=== PATIENT | male | born 1955 | race Caucasian/White ===

== ENCOUNTER 2017-11-03 14:29 | Outpatient (CLI) | payer MEDICARE | END 2017-11-03 14:30 | disposition home or self-care (01) | LOC: BICRAD 14:29 | PROVIDERS: ATTEND Specialist | DX: R09.1 Pleurisy (principal); R05 Cough; I65.22 Occlusion and stenosis of left carotid artery; K00.0 Anodontia; K02.9 Dental caries, unspecified | CPT/HCPCS: 70220; 71046 ==

== ENCOUNTER 2017-11-14 07:36 | Outpatient (CLI) | payer MEDICARE ==
[2017-11-14] MEDS ORDERED: Iopamidol 370 76% 100 ML VIAL ONE (11:25)
== END 2017-11-14 07:37 | disposition home or self-care (01) ==
LOC: BICCT 07:36
PROVIDERS: ATTEND Internal Medicine Gastroenterology
DX: R63.4 Abnormal weight loss (principal); J90 Pleural effusion, not elsewhere classified; J98.11 Atelectasis; R91.8 Other nonspecific abnormal finding of lung field; R59.0 Localized enlarged lymph nodes; M25.412 Effusion, left shoulder; M25.411 Effusion, right shoulder; D64.9 Anemia, unspecified; R93.8 Abnormal findings on diagnostic imaging of other specified body structures
CPT/HCPCS: 71260; 74177

== ENCOUNTER 2018-01-19 10:00 | Outpatient (CLI) | payer MEDICARE ==
--- NOTE | 2018-01-19 12:06 | RAD ---
PA AND LATERAL CHEST RADIOGRAPH: Date: 01-19-18 History: Dyspnea. Comparison: 06-06-10 FINDINGS: Cardiac silhouette and pulmonary vasculature are within normal limits. There is elevation of the left hemidiaphragm. There is a linear density seen within the superior segment of the left lower lobe lik alex related to either subsegmental atelectasis or scarring. There is increased density at the medial right lung base which is probably related to superimposition of structures including vasculature. Keyla gs are otherwise clear. Mild degenerative changes are seen in the spine. IMPRESSION: 1. Interval development of mild elevation of the left hemidiaphragm with subsegmental atelectasis jesus yesenia scarring in the left lower lobe. 2. No acute cardiopulmonary process. POS: [facility]
== END 2018-01-19 10:01 | disposition home or self-care (01) ==
LOC: RAD 10:00
PROVIDERS: ATTEND Internal Medicine Critical Care Medicine
DX: R06.00 Dyspnea, unspecified (principal); J98.6 Disorders of diaphragm
CPT/HCPCS: 71046

== ENCOUNTER 2018-04-07 14:59 | Observation (INO) | payer MEDICARE ==
[~2018-04-07 14:59] MED LIST: ISOVUE-370 76%-LOCM 1 ML ONE
[2018-04-07] MEDS ORDERED: Ondansetron HCl/PF 4 MG/2 ML Vial ONE (15:12)
[2018-04-07 15:34] LABS: #Eosinphils 0.2 thou/uL (0.0-0.7); #Lymphocytes 0.7 thou/uL (1.20-3.40); #Monocytes 0.4 thou/uL (0.11-0.59); #Neutrophils 4.7 thou/uL (1.40-6.50); %Basophils 0.4 % (0.0-1.0); %Eosinophils 3.1 % (0.0-10.0); %Lymphocytes 12.3 % (21.0-51.0); %Monocytes 6.1 % (0.0-10.0); %Neutrophils 78.2 % (42.0-75.0); Hemoglobin 10.5 g/dL (14.0-18.0); Mean Corpuscular HGB CONC 30.8 g/dL (32.0-36.0); Mean Corpuscular Hemoglobin 24.9 pg (27.0-31.0); Mean Corpuscular Volume 80.8 fL (78.0-98.0); Mean Platelet Volume 9.3 fL (7.4-10.4); Platelet Count 138 thou/uL (130-400); RBC Distribution Width 15.5 % (11.5-14.5); Red Blood Cell (RBC) Count 4.24 mill/uL (4.70-6.10)
[2018-04-07 15:56] LABS: ALT (SGPT) Less than 7 U/L (8-55); AST (SGOT) 7 U/L (5-34); Albumin 3.4 g/dL (3.4-4.8); Alkaline Phosphatase 69 U/L (40-150); Anion Gap 16 mmol/L (10-20); BUN (Urea Nitrogen) 7 mg/dL (8.4-25.7); Bilirubin, Total 0.7 mg/dL (0.2-1.2); CKMB 0.7 ng/mL (0-6.6); Calc. Creatinine Clearance 0 mL/min (70-130); Calcium 8.9 mg/dL (7.8-10.44); Carbon Dioxide 22 mmol/L (23-31); Chloride 99 mmol/L (98-107); Estimated GFR-MDRD Greater than 90; Globulin 3.5 g/dL (2.4-3.5); Glucose 187 mg/dL (80-115); Protein, Total 6.9 g/dL (5.8-8.1); Sodium 134 mmol/L (136-145); Troponin I Less than 0.010 ng/mL (< 0.028)
[2018-04-07 16:00] LABS: Potassium 2.8 mmol/L (3.5-5.1)
--- NOTE | 2018-04-07 16:01 | RAD ---
PORTABLE AP CHEST X-RAY 04/07/18 HISTORY: Syncope. COMPARISON: 01/19/18 FINDINGS: The cardiac silhouette and pulmonary vasculature are within normal limits for portable technique of t he study. There is stable mild elevation of the left hemidiaphragm particularly involving the lateral left hemidiaphragm. There are erosive changes involving the humeral heads bilaterally also present o n the prior exam. There is good distention of loops of bowel beneath the hemidiaphragms. IMPRESSION: 1. No acute cardiopulmonary process. 2. Stable elevation of the left hemidiaphragm with scarring in the region of the left mid lung z one and left lung base. 3. Stable erosive change involving the humeral heads bilaterally. POS: [facility]
[2018-04-07] MEDS ORDERED: Potassium Chloride 20 MEQ TAB ONE (16:03)
[2018-04-07] MEDS ORDERED: ALPRAZolam 1 MG TAB PO SCH ×2 (18:15→18:30)
[2018-04-07 19:28] LABS: Troponin I Less than 0.010 ng/mL (< 0.028)
--- NOTE | 2018-04-07 20:33 | CT ---
CTA CHEST WITH CONTRAST: 04/07/18 Multiple axial tomograms obtained through the chest following pulmonary angio protocol. Multiplanar r econstruction with 3D postprocessing performed. INDICATIONS: Seizure, shortness of breath, possible syncope. FINDINGS: The pulmonary arteries are adequately opacified. No evidence of pulmonary embolus. Linear atelectasis in the left lung base. Some interstitial prominence in the posterior left lung bas e of uncertain significance. No confluent infiltrate. No significant effusion. Review of the mediastinum reveals soft tissue density in the subcarinal region measuring 2.5 cm, poss ibly adenopathy. There are other nonspecific paratracheal nodes. There are enlarged and increased number of axillary nodes bilaterally. Several nodes are seen in the retropectoral region bilaterally. There is evidence of a small pericardial effusion. Imaged to upper abdomen show mild splenomegaly. IMPRESSION: 1. No evidence of pulmonary embolus. 2. No acute lung process. 3. Small pericardial effusion. 4. Evidence of mediastinal adenopathy in the subcarinal region. 5. Bilateral axillary adenopathy. POS: [facility]
[2018-04-07 22:03] LABS: Troponin I Less than 0.010 ng/mL (< 0.028)
[2018-04-07] MEDS ORDERED: Rosuvastatin 10 MG TAB PO SCH (22:15)
[2018-04-07] MEDS ORDERED: Potassium Chloride 20 MEQ TAB PO SCH (22:15)
[2018-04-07] MEDS: Acetaminophen/Codeine 30-300mg Tablet PO PRN (22:26)
[2018-04-07 23:20] VITALS: BMI 23.3
[2018-04-08] MEDS: ALPRAZolam 1 MG TAB PO PRN ×2 (00:10→08:51)
[2018-04-08] MEDS ORDERED: Ondansetron ODT 4 MG TAB SL PRN (02:27)
[2018-04-08] MEDS ORDERED: Acetaminophen 325 MG TAB PO PRN (02:27)
[2018-04-08] MEDS ORDERED: Ondansetron HCl/PF 4 MG/2 ML Vial IVP PRN (02:27)
[2018-04-08] MEDS ORDERED: Sodium Chloride 0.9% 1,000 ML IV SCH (02:27)
[2018-04-08 04:53] LABS: Anion Gap 11 mmol/L (10-20); BUN (Urea Nitrogen) 6 mg/dL (8.4-25.7); Calc. Creatinine Clearance 141 mL/min (70-130); Calcium 8.9 mg/dL (7.8-10.44); Carbon Dioxide 28 mmol/L (23-31); Chloride 100 mmol/L (98-107); Estimated GFR-MDRD Greater than 90; Glucose 92 mg/dL (80-115); Potassium 4.2 mmol/L (3.5-5.1); Sodium 135 mmol/L (136-145)
--- NOTE | 2018-04-08 07:42 | SS ---
CHIEF COMPLAINT: Vasovagal episode with hypokalemia. HISTORY OF PRESENT ILLNESS: The patient is a 62-year-old male with severe rheumatoid arthritis and has been dealing with chronic pain and deformity due to the rheumatoid arthritis. He recently has had surgery on his left elbow and had been taking some hydrocodone along with the fentanyl that was given to him to deal with his chronic pain. The patient has had a problem with this medication combination in the past, over utilizing medicines and being hospitalized for consequences thereof. On this particular episode the patient was being transported to his doctor's office, Home Health was present and he was ambulating just fine until he looked up while walking out to the car to get in the car, at which time when he looked up, raise his head up, he lost his equilibrium and went down. EMS was called. There was never any seizure activity noted. He was never postictal. He responded right away. He was brought to the emergency room where he was found to have a potassium level of 2.8. He was put in the hospital to be watched overnight. There has been no nausea, vomiting, diarrhea, no fever overnight. He has done well. No cardiac arrhythmias, chest pain, shortness of breath and he has no specific complaints on the morning of discharge. PAST MEDICAL HISTORY: Significant for the aforementioned rheumatoid arthritis affecting all the major joints of his body, generalized anxiety and history of medication abuse and overuse. He also has a history of dyslipidemia. PAST SURGICAL HISTORY: Includes the aforementioned recent surgery on his left elbow. He has also had surgery on his right hand, right hip, bilateral knees, left foot, left ankle, left elbow replaced most recently. SOCIAL HISTORY: He is , lives alone. Drinks socially, denies illicit drug use or smoking. ALLERGIES: CELECOXIB, DEMEROL and SULFA. CURRENT MEDICATIONS: Crestor 10 mg at bedtime, fentanyl 25 mcg q.72h., aspirin 81 mg a day, Tylenol #4 q.6 hours p.r.n. this is closely monitored due to history of medication abuse, Xanax 2 mg closely monitored, also, due to history of overdose and misuse, Protonix 40 mg once a day. REVIEW OF SYSTEMS: CONSTITUTIONAL: At the time of admission constitutionally denies chills, fever. He admits to generalized weakness, this is his baseline with chronic diffuse pain. HEENT: No sores in ears, nose or throat. No drainage or pain in those locations. CHEST: Denies dyspnea, cough, wheezing. CARDIOVASCULAR: Denies chest pain, palpitations. ABDOMEN: Denies nausea, vomiting, diarrhea. : Denies dysuria or blood in urine or stool. MUSCULOSKELETAL: He has diffuse arthralgias with deformities and stiffness. SKIN: No acute rashes or lesions. NEUROLOGIC: No specific areas of anesthesia, paresthesias hypesthesia, but he does have general weakness. PSYCHIATRIC: Maintains constant anxiety and drug seeking behavior. PHYSICAL EXAMINATION: VITAL SIGNS: Blood pressure 134/66, pulse 75, respirations 18, temperature 98.4. Pain scale is always a 10/10, O2 sat 95% on room air. HEENT: Normocephalic and atraumatic. Pupils equal, round, and reactive to light. Extraocular muscles intact. TMs, nares, pharynx clear. NECK: Supple, trachea midline, no mass, no bruits, no adenopathy. CHEST: Clear to auscultation. HEART: Regular rate and rhythm without murmur. ABDOMEN: Scaphoid without hepatosplenomegaly. Nontender to exam. : Deferred. EXTREMITIES: With deformities in all the major joints, but diminished range of motion as well. SKIN: No new rashes or lesions. NEUROLOGIC: Cranial nerves are intact. Sensory exam is intact. Mental status is at baseline and nonfocal. Gait and cerebellar function untested at this time. LABORATORY DATA: Lab work on admission; WBC 6, hemoglobin 10.5, hematocrit 34.2 with platelets at 134. Sodium initially 134 has been corrected to 135, potassium 2.8, corrected to 4.2, carbon dioxide 22, corrected to 28, chloride 99 , BUN 7, creatinine 0.67, glucose 187, corrected to 92, calcium 8.9. Liver functions unremarkable. Cardiac enzymes unremarkable x3. Chest x-ray; no acute process. Bilateral erosive changes in the humeral heads noted. Chest CT, no evidence of PE, small pericardial effusion, evidence of mediastinal adenopathy in the subcarinal region, bilateral axillary adenopathy as well. HOSPITAL COURSE: As mentioned the patient initially evaluated in the ER and found to be hypokalemic and weak. He was placed in the hospital overnight. Cardiac enzymes were performed and negative. Cardiac rhythm was monitored and was found to be within normal limits. He had an unremarkable night and wakes easily on the day of discharge without complaints, alert, cooperative. He admits to taking hydrocodone on top of his fentanyl patch which he was not supposed to do, probably also on top of a Tylenol #4, which he had had, and then his Xanax with that, so these drugs have interacted to cause his symptomatology and he has been warned not to use this combination again. He apologizes and he knew better. ASSESSMENT: 1. Vasovagal episode secondary to polysubstance abuse. 2. Diffuse rheumatoid arthritis with chronic pain. 3. Hypokalemia, corrected. 4. Mediastinal axillary adenopathy will be worked up as an outpatient. PLAN: The plan will be to discharge home. Resume his medications excluding the hydrocodone on top of his other medicines and will follow up with Dr. Myles in the office in 1-2 weeks. The time required to review the chart, examine the patient, student services counselor the patient , answer all his questions and prepare the chart for discharge, all his medication was reconciled, then came to 35 minutes. FLORY
[2018-04-08] MEDS ORDERED: Potassium Chloride 20 MEQ TAB PO SCH (08:00)
[2018-04-08] MEDS: Acetaminophen/Codeine 30-300mg Tablet PO PRN (08:51)
[2018-04-08 12:23] VITALS: BP 97/56; TEMP 97.6
[2018-04-08] MEDS ORDERED: Rosuvastatin 10 MG TAB PO SCH (21:00)
== END 2018-04-08 13:55 | disposition home or self-care (01) ==
LOC: ERS 14:59 → 2SW 21:15
PROVIDERS: ADMIT Specialist; ATTEND Specialist
DX: T40.2X1A Poisoning by other opioids, accidental (unintentional), initial encounter (principal); T40.4X1A Poisoning by other synthetic narcotics, accidental (unintentional), initial encounter; T39.1X1A Poisoning by 4-Aminophenol derivatives, accidental (unintentional), initial encounter; T42.4X1A Poisoning by benzodiazepines, accidental (unintentional), initial encounter; R55 Syncope and collapse; M06.89 Other specified rheumatoid arthritis, multiple sites; E87.6 Hypokalemia; R59.0 Localized enlarged lymph nodes; E78.5 Hyperlipidemia, unspecified; F41.1 Generalized anxiety disorder; Z79.82 Long term (current) use of aspirin; Z79.899 Other long term (current) drug therapy; Z88.2 Allergy status to sulfonamides; Z88.5 Allergy status to narcotic agent; Z88.6 Allergy status to analgesic agent
CPT/HCPCS: 71045; 71275; 80048; 80053; 82553; 84484 ×2; 85025; 90686; 93005; 96361; 96374; 97139; 99285; G0008; G0378 ×2; 36415; 90471; J2405

== ENCOUNTER 2018-04-24 06:56 | Day surgery (SDC) | payer MEDICARE ==
[2018-04-23 16:33] VITALS: BMI 24.4
[2018-04-24] MEDS ORDERED: Ketorolac Tromethamine 30 MG/ML VIAL ONE (07:58)
[2018-04-24] MEDS ORDERED: CEFAZOLIN/Water 2 GM/20 ML SYRINGE ONE (07:59)
[2018-04-24] MEDS ORDERED: Bupivacaine HCl 0.5%/Epinephrine 1:200,000/PF 30 ml Vial ONE (09:34)
[2018-04-24] MEDS ORDERED: Lidocaine 2% PF 5 ML VIAL ONE (09:34)
[2018-04-24] MEDS ORDERED: Fentanyl 100 MCG/2 ML VIAL ONE ×2 (09:35→10:53)
--- NOTE | 2018-04-24 11:40 | OP ---
DATE OF PROCEDURE: 04/24/2018 PREOPERATIVE DIAGNOSES: Lymphadenopathy with large right axillary node, rheumatoid arthritis. POSTOPERATIVE DIAGNOSES: Lymphadenopathy with large right axillary node, rheumatoid arthritis. PROCEDURE: Excisional biopsy, deep axillary right node. SURGEON: Jeremiah Uribe M.D. ANESTHESIA: LMA. General. Local 0.5% Marcaine with epinephrine, 30 mL, mixed with 2% Xylocaine, 10 mL, 20 mL mixture used. PROCEDURE IN DETAIL: The patient was taken to the operating room where under general LMA anesthesia, the right axilla clipped of hair, prepared with ChloraPrep, draped in routine fashion. Incision was made in the right axilla, carried down skin and subcutaneous tissue and a deep axillary node excised from beneath the deep fascia and excised, submitted to pathology fresh for lymph node evaluation. H emostasis gained with the cautery. Subcutaneous tissues approximated with 3-0 Monocryl, skin with gambino bdermal 4-0 Monocryl and DermaGlue applied. The patient tolerated the procedure well.
[2018-04-24] MEDS ORDERED: HYDROcodone/Acetaminophen 5/325 mg Tablet ONE (13:30)
== END 2018-04-24 13:10 | disposition home or self-care (01) ==
LOC: SDC 06:56
PROVIDERS: ATTEND Specialist
PROC: 07B50ZX Excision of Right Axillary Lymphatic, Open Approach, Diagnostic (ICD-10-PCS; principal; 2018-04-24)
DX: R59.0 Localized enlarged lymph nodes (principal); M06.9 Rheumatoid arthritis, unspecified; Z79.82 Long term (current) use of aspirin; Z79.899 Other long term (current) drug therapy; Z88.2 Allergy status to sulfonamides; Z88.5 Allergy status to narcotic agent; Z88.6 Allergy status to analgesic agent
CPT/HCPCS: 88184; 88307; 96374; J0131; J0670; J1885; J2001; J3010

== ENCOUNTER 2019-03-15 13:37 | Emergency (ER) | payer MEDICARE ==
[2019-03-15] MEDS ORDERED: Morphine 4 MG/ML VIAL ONE ×2 (14:01→17:11)
[2019-03-15] MEDS ORDERED: Ondansetron PF 4 MG/2 ML Vial ONE (14:01)
[2019-03-15 14:32] LABS: INR-International Normal Ratio 1.2; PTT 31.4 SEC (22.9-36.1); Prothrombin Time 15.1 SEC (12.0-14.7)
[2019-03-15 14:43] LABS: #Eosinphils 0.1 thou/uL (0.0-0.7); #Lymphocytes 0.8 thou/uL (1.20-3.40); #Monocytes 0.2 thou/uL (0.11-0.59); #Neutrophils 1.1 thou/uL (1.40-6.50); %Basophils 0.8 % (0.0-1.0); %Eosinophils 5.9 % (0.0-10.0); %Lymphocytes 36.1 % (21.0-51.0); %Monocytes 9.8 % (0.0-10.0); %Neutrophils 47.4 % (42.0-75.0); Anisocytosis SLIGHT = 6-15 cells (100X) (0-5/hpf); Elliptocytes SLIGHT = 2-5 cells (100X) (0-1/hpf); Hemoglobin 10.9 g/dL (14.0-18.0); Hypochromia SLIGHT = 6-15 cells (100X) (0-5/hpf); MDiff Complete? YES; Mean Corpuscular HGB CONC 31.6 g/dL (32.0-36.0); Mean Corpuscular Hemoglobin 24.8 pg (27.0-31.0); Mean Corpuscular Volume 78.4 fL (78.0-98.0); Mean Platelet Volume 8.6 fL (7.4-10.4); Platelet Count 118 thou/uL (130-400); Platelet Morphology Comment Appears Decreased; Polychromasia SLIGHT = 2-3 cells (100X) (0-2/hpf); RBC Distribution Width 15.5 % (11.5-14.5); Red Blood Cell (RBC) Count 4.39 mill/uL (4.70-6.10); White Blood Cell (WBC) Count 2.3 thou/uL (4.8-10.8)
[2019-03-15 14:49] LABS: ALT (SGPT) Less than 7 U/L (8-55); AST (SGOT) 13 U/L (5-34); Albumin 3.4 g/dL (3.4-4.8); Alkaline Phosphatase 77 U/L (40-150); Anion Gap 10 mmol/L (10-20); BUN (Urea Nitrogen) 11 mg/dL (8.4-25.7); Bilirubin, Total 0.4 mg/dL (0.2-1.2); Calc. Creatinine Clearance 0 mL/min (70-130); Calcium 8.9 mg/dL (7.8-10.44); Carbon Dioxide 31 mmol/L (23-31); Chloride 99 mmol/L (98-107); Estimated GFR-MDRD Greater than 90; Globulin 3.6 g/dL (2.4-3.5); Glucose 114 mg/dL (80-115); Potassium 3.5 mmol/L (3.5-5.1); Sodium 136 mmol/L (136-145)
--- NOTE | 2019-03-15 15:56 | RAD ---
Right shoulder 3 views HISTORY: Fall. Right shoulder pain. COMPARISON: Chest radiograph from 04/07/2018. Chronic deformity of the lateral aspect of the clavicle with widening of the acromioclavicular and glenohumeral joints are similar to the prior chest radiograph. There is chronic elevation of the humeral head in relation to the glenoid. Subcortical er osion of the humeral head has progressed significantly. No acute fracture or dislocation are evident. IMPRESSION: There has been fairly rapid progression of subcortical erosions of the humeral head since the chest radiographs from 2018. Acute traumatic abnormality not evident. Findings were called to Alana Walters in the emergency department. She describes that the patient i s already under the care of orthopedics.
--- NOTE | 2019-03-15 15:57 | RAD ---
AP PELVIS: History: Fall with injury. FINDINGS: Bilateral hip prostheses. Components appear in adequate position and alignment. Bony pelvis appears i ntact. No acute fracture is identified. IMPRESSION: No acute findings. POS: [facility]
--- NOTE | 2019-03-15 15:59 | RAD ---
RIGHT HIP TWO VIEWS: History: Fall with injury. FINDINGS: Right hip prosthesis is noted. Components appear in adequate position and alignment. No evidence of a cute fracture. IMPRESSION: No evidence of fracture. No evidence of prostatic loosening. POS: [facility]
[2019-03-15] MEDS ORDERED: Ketorolac Tromethamine 30 MG/ML VIAL ONE (16:12)
--- NOTE | 2019-03-15 17:44 | CT ---
EXAM: CT pelvis without contrast HISTORY: Pelvic and hip pain after fall at home COMPARISON: None TECHNIQUE: Multiple contiguous axial images were obtained and a CT of the pelvis without contrast. Sa gittal and coronal reformats were performed. FINDINGS: No pelvic fractures are seen. No fracture of either proximal femur is seen. The patient has bilateral hip prostheses without perihardware lucency or fracture. The visualized intrapelvic structures are unremarkable. Streak artifact from the prostheses limits ev aluation of the intrapelvic structures. The soft tissues surrounding the pelvis are unremarkable. IMPRESSION: No evidence of hip or pelvic fracture.
== END 2019-03-15 18:20 | disposition home or self-care (01) ==
LOC: ERS 13:37
DX: S40.011A Contusion of right shoulder, initial encounter (principal); S80.212A Abrasion, left knee, initial encounter; M25.551 Pain in right hip; M19.90 Unspecified osteoarthritis, unspecified site; F41.9 Anxiety disorder, unspecified; Z79.899 Other long term (current) drug therapy; Z79.82 Long term (current) use of aspirin; W01.0XXA Fall on same level from slipping, tripping and stumbling without subsequent striking against object, initial encounter
CPT/HCPCS: 72170; 72192; 80053; 85025; 85610; 85730; 93005; 96374; 96375; 96376; J1885; J2270; J2405

== ENCOUNTER 2019-06-19 10:23 | Inpatient (IN) | payer MEDICARE ==
--- NOTE | 2019-06-19 11:18 | RAD ---
Left foot 4 views HISTORY: Abscess. Foot pain. FINDINGS: No comparison. Extensive erosive changes about the articular surfaces throughout the midfoo t, hindfoot, and forefoot. Defect at the second through fourth metatarsal heads likely related to prior surgery and resection.. Prominent soft tissue swelling at the plantar surface of the foot. Internal operative fixation of the calcaneus and first metatarsophalangeal joint. Thin linear calcification, 0.5 cm length, plantar surface of the foot at the level of the metatarsal bases on the lateral view. Possible embedded foreign body. No soft tissue gas is evident. IMPRESSION: Advanced arthritic changes involving primarily the midfoot and hindfoot. Favor neuropathi c arthropathy. (Charcot joint). Prominent soft tissue swelling. No soft tissue gas evident. Possible small embedded foreign body at t he plantar surface of the foot. Postoperative changes without evidence of complication.
[2019-06-19 11:24] LABS: ALT (SGPT) 10 U/L (8-55); AST (SGOT) 17 U/L (5-34); Albumin 3.9 g/dL (3.4-4.8); Alkaline Phosphatase 80 U/L (40-110); Anion Gap 15 mmol/L (10-20); BUN (Urea Nitrogen) 12 mg/dL (8.4-25.7); Bilirubin, Total 0.7 mg/dL (0.2-1.2); Calc. Creatinine Clearance 0 mL/min (70-130); Calcium 9.8 mg/dL (7.8-10.44); Carbon Dioxide 29 mmol/L (23-31); Chloride 98 mmol/L (98-107); Estimated GFR-MDRD Greater than 90; Globulin 4.2 g/dL (2.4-3.5); Glucose 91 mg/dL (80-115); Potassium 3.6 mmol/L (3.5-5.1); Protein, Total 8.1 g/dL (5.8-8.1); Sodium 138 mmol/L (136-145)
[2019-06-19 11:34] LABS: Band 7 % (5-11); Eosinophils 10 % (0-10); Hemoglobin 11.5 g/dL (14.0-18.0); Lymphocytes 43 % (21-51); MDiff Complete? YES; Mean Corpuscular HGB CONC 31.6 g/dL (32.0-36.0); Mean Corpuscular Hemoglobin 24.2 pg (27.0-31.0); Mean Corpuscular Volume 76.8 fL (78.0-98.0); Mean Platelet Volume 8.4 fL (7.4-10.4); Microcytosis SLIGHT = 6-15 cells (100X) (0-5/hpf); Monocytes 4 % (0-10); Neutrophil 34 % (42-75); Ovalocytes SLIGHT = 2-5 cells (100X) (0-1/hpf); Platelet Count 102 thou/uL (130-400); Platelet Morphology Comment Appears Decreased; Poikilocytosis SLIGHT = 6-15 cells (100X) (0-5/hpf); RBC Distribution Width 13.9 % (11.5-14.5); Red Blood Cell (RBC) Count 4.77 mill/uL (4.70-6.10); Reflex for Review?? YES; White Blood Cell (WBC) Count 1.9 thou/uL (4.8-10.8)
[2019-06-19] MEDS ORDERED: Fentanyl 100 MCG/2 ML VIAL ONE (12:39)
[2019-06-19] MEDS ORDERED: Cefepime 2 GM VIAL ONE (12:41)
[2019-06-19] MEDS ORDERED: Sodium Chloride 0.9% 100 ML ONE (12:41)
[2019-06-19] MEDS ORDERED: Fentanyl 100 MCG/2 ML VIAL SLOW IVP SCH (17:00)
[2019-06-19] MEDS ORDERED: fentaNYL 50 mcg/hour Patch TD SCH (17:00)
[2019-06-19] MEDS ORDERED: Ondansetron PF 4 MG/2 ML Vial IVP PRN (17:01)
[2019-06-19] MEDS ORDERED: Acetaminophen 325 MG TAB PO PRN (17:02)
[2019-06-19 17:15] VITALS: BMI 24.0
[2019-06-19] MEDS: Sodium Chloride 0.9% 1,000 ML IV SCH (19:18)
[2019-06-19] MEDS: ALPRAZolam 0.5 MG TAB PO SCH (19:39)
[2019-06-19] MEDS: Fentanyl 100 MCG/2 ML VIAL SLOW IVP PRN (19:39)
[2019-06-20] MEDS: Fentanyl 100 MCG/2 ML VIAL SLOW IVP PRN ×8 (00:43→23:10)
[2019-06-20] MEDS ORDERED: Cefepime 2 GM in Sodium Chloride 0.9% 100 ML IVPB SCH (01:00)
[2019-06-20] MEDS: Vancomycin 1.5 GRAM/300 ML BAG 1.5 GM in Premix Bag 1 BAG IVPB SCH ×2 (03:02→15:44)
[2019-06-20] MEDS: Sodium Chloride 0.9% 1,000 ML IV SCH ×2 (03:02→15:43)
[2019-06-20 04:23] LABS: Anion Gap 12 mmol/L (10-20); BUN (Urea Nitrogen) 9 mg/dL (8.4-25.7); Calc. Creatinine Clearance 133 mL/min (70-130); Calcium 7.7 mg/dL (7.8-10.44); Carbon Dioxide 24 mmol/L (23-31); Cardiac Risk 2.3 (Less than 4.5); Chloride 103 mmol/L (98-107); Cholesterol 82 mg/dl (< 200 Desired); Estimated GFR-MDRD Greater than 90; Glucose 101 mg/dL (80-115); HDL Cholesterol 35 mg/dL (>60 Neg Risk); LDL Cholesterol, Calculated 36 mg/dL; Potassium 3.1 mmol/L (3.5-5.1); Sodium 136 mmol/L (136-145); Triglycerides 54 mg/dL (Less than 150)
[2019-06-20] MEDS: Ondansetron PF 4 MG/2 ML Vial IVP SCH ×4 (06:24→23:10)
[2019-06-20 09:00] LABS: Eosinophils 7 % (0-10); Hemoglobin 8.9 g/dL (14.0-18.0); Lymphocytes 66 % (21-51); MDiff Complete? YES; Mean Corpuscular HGB CONC 32.1 g/dL (32.0-36.0); Mean Corpuscular Hemoglobin 24.4 pg (27.0-31.0); Mean Corpuscular Volume 76.2 fL (78.0-98.0); Mean Platelet Volume 8.4 fL (7.4-10.4); Microcytosis SLIGHT = 6-15 cells (100X) (0-5/hpf); Monocytes 6 % (0-10); Neutrophil 20 % (42-75); Ovalocytes SLIGHT = 2-5 cells (100X) (0-1/hpf); Platelet Count 79 thou/uL (130-400); Platelet Morphology Comment Appears Decreased; Poikilocytosis SLIGHT = 6-15 cells (100X) (0-5/hpf); RBC Distribution Width 13.7 % (11.5-14.5); Red Blood Cell (RBC) Count 3.62 mill/uL (4.70-6.10); White Blood Cell (WBC) Count 1.5 thou/uL (4.8-10.8)
[2019-06-20] MEDS: Cefepime 2 GM in Sodium Chloride 0.9% 100 ML IVPB SCH ×2 (09:23→17:44)
[2019-06-20] MEDS: ALPRAZolam 0.5 MG TAB PO SCH ×3 (09:24→20:16)
--- NOTE | 2019-06-20 14:34 | MRI ---
EXAM: MRI left midfoot PROVIDED CLINICAL HISTORY: Swelling COMPARISON: Radiographs 06/19/2019 FINDINGS: Cortical irregularity and periarticular signal alteration is seen about the Lisfranc joint compatible with neuropathic change. Metallic susceptibility artifact is present within the calcaneus and first ray, producing artifact which limits evaluation. There is a focal, somewhat masslike area of signal alteration present at the plantar aspect of the mi dfoot subjacent to the cuboid involving primarily the subcutaneous adipose layer, though the plantar aponeurosis in this region is not well seen and may be involved. This measures at least 3.2 c m in greatest AP dimension and about 2.9 cm x 2.8 cm in greatest craniocaudal by transverse dimensions respectively. This is primarily T1 isointense to skeletal muscle and demonstrates a hetero geneously hyperintense to skeletal muscle appearance on fluid sensitive sequences. No regional joint effusion is evident. Fatty infiltration of the intrinsic foot musculature diffusely is noted. IMPRESSION: 1. 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 2. Nonspecific soft tissue signal alteration at the plantar aspect of the midfoot. This is incomplete ly evaluated in the absence of IV contrast material. Phlegmon, hematoma and neoplasm are possible.
[2019-06-20 15:53] LABS: Vancomycin, Trough 16.5 ug/mL
--- NOTE | 2019-06-20 16:55 | HP ---
CHIEF COMPLAINT: Cellulitis of the left foot and neutropenia and thrombocytopenia. HISTORY OF PRESENT ILLNESS: The patient is a 64-year-old male with severe debilitating rheumatoid arthritis, who has been homebound for over a year. At this point, he has been getting his joints surgically improved by Dr. Abreu one set at a time, but during this time, he has been unable to care for himself with contractures. He arrived to Dr. Myles' office on the day of admission having been intubated for quite some time with significant weight loss and general weakness such that he was not even able to walk into the office. He had to be brought in a wheelchair. This is all new and changed from his usual state of health. In the office, he was complaining of left foot pain. On inspection, he had a 3 x 3 cm raised fluctuant erythematous nodule. There was concern that he had osteomyelitis and for this reason, he was sent to the emergency room for further evaluation. In the emergency room, he was noted to have a white count down to 1.5. His platelets were under 100,000 and as mentioned previously, he was very weak and malnourished as well. Dr. Myles was contacted for admission at this point. The physician's technical support assistant did try to incise and drain his foot. However, it did not return any pus. Initial x-rays did not show bony involvement, but it is a Charcot joint type foot that due to physical exam required further evaluation because of clinical impression. PAST MEDICAL HISTORY: Significant for the aforementioned severe debilitating rheumatoid arthritis, significant medical noncompliance, issues of prescription medicines in the past requiring strict control of all chronic pain medicines. He has also had severe anxiety disorder, dyslipidemia. PAST SURGICAL HISTORY: Includes left elbow, right hand, right hip, bilateral knees, left foot, left ankle, left elbow were replaced in March 2018. He has had a right total hip replacement, laparoscopic cholecystectomy. He had an EGD and colonoscopy in June 2017. PSYCHIATRIC HISTORY: Significant for depression, anxiety, multiple prescriptions, substance abuse. ALLERGIES: NONE. MEDICATIONS ON ADMISSION: Include: 1. Crestor 10 mg q.h.s. 2. Fentanyl patch 50 mcg/hour. 3. Aspirin 81 mg daily. 4. Xanax 2 mg t.i.d. 5. Protonix 40 mg daily. 6. Flexeril 10 mg t.i.d. REVIEW OF SYSTEMS: CONSTITUTIONAL: At this time is significant for general weakness. Denies fever or chills. He has had further weight loss and muscle wasting. HEENT: No sores or drainage in eyes, ears, nose or throat. CHEST: Denies dyspnea or cough. CARDIOVASCULAR: Denies chest pain or palpitation. GI: Denies nausea, vomiting, or diarrhea. : Denies any dysuria or blood in urine or stool. MUSCULOSKELETAL: Diffuse chronic deformities and pain with contractures significant in the upper extremities. SKIN: Significant for aforementioned erythematous nodule on his left foot. NEUROLOGIC: Significant for anxiety and depression. PHYSICAL EXAMINATION: VITAL SIGNS: On admission, blood pressure is 121/79, pulse 92, respirations 19, temperature 98.0, O2 saturation 97% on room air. Pain scale is a 9 and is an unreliable predictor pain due to his constant desire for medication. HEENT: Shows temporal wasting and sunken eyes. Pupils are equal, round, and reactive to light with arcus senilis bilaterally. TMs and nares clear. Pharynx is somewhat dry. NECK: Supple. CHEST: Clear to auscultation. HEART: Regular rate and rhythm without murmur. ABDOMEN: Scaphoid without organomegaly or tenderness. : Deferred. EXTREMITIES: Upper extremities with contractures at the wrists and significant wasting of muscles in upper and lower extremities and diffuse deformity noted in all major muscle groups. SKIN: Shows several layers of hypertrophic accumulated fill and open sores with pustules and these are diffuse. NEUROLOGIC: Significant for anxiety. The cranial nerves are intact. Unable to test gait and cerebellar function at this time due to debility, but sensory exam is generally intact. Mental status is at baseline. LABORATORY DATA: His lab on admission, WBCs initially 1.9, went to 1.5 over 24 hours, hemoglobin went from 11.5 to 8.9, and hematocrit down to 27.6, platelets went from 102 to 79 with lymphocytosis noted. Sodium 136, potassium 3.1, chloride 103, CO2 of 24, BUN 9, creatinine 0.63 with a GFR greater than 90 and calcium went from 9.8 to 7.7. C-reactive protein elevated at 7.49. Total cholesterol 82, LDL 36, HDL 35. Initial x-ray of the foot shows soft tissue swelling, Charcot bony deformity. No other lesions noted. ASSESSMENT: 1. Cellulitis, left foot, rule out osteomyelitis. 2. Neutropenia. 3. Thrombocytopenia. 4. Severe debilitating rheumatoid arthritis. 5. Chronic pain. 6. Hypokalemia. 7. Dilutional anemia, rule out gastrointestinal bleed. PLAN: Plan will be to get an MRI of his foot. Continue hydration, nutritional support, serial re-evaluation, pain management, IV treatment of his infection and consultation probably with Hematology, and then serial reassessment. Job ID: [id number]
[2019-06-20] MEDS: NS 0.9% w/ 20 MEQ KCL 1,000 ML IV SCH (17:54)
[2019-06-20] MEDS ORDERED: diphenhydrAMINE 25 MG CAP PO PRN (20:07)
[2019-06-21] MEDS: Cefepime 2 GM in Sodium Chloride 0.9% 100 ML IVPB SCH ×3 (01:30→18:23)
[2019-06-21] MEDS: Fentanyl 100 MCG/2 ML VIAL SLOW IVP PRN ×7 (02:08→22:24)
[2019-06-21] MEDS: Vancomycin 1.5 GRAM/300 ML BAG 1.5 GM in Premix Bag 1 BAG IVPB SCH ×2 (03:04→20:17)
[2019-06-21 04:49] LABS: Mean Corpuscular HGB CONC 31.7 g/dL (32.0-36.0); Mean Corpuscular Hemoglobin 24.5 pg (27.0-31.0); Mean Corpuscular Volume 77.3 fL (78.0-98.0); Mean Platelet Volume 8.4 fL (7.4-10.4); Platelet Count 88 thou/uL (130-400); Red Blood Cell (RBC) Count 4.08 mill/uL (4.70-6.10); White Blood Cell (WBC) Count 1.7 thou/uL (4.8-10.8)
[2019-06-21 05:12] LABS: Anion Gap 10 mmol/L (10-20); BUN (Urea Nitrogen) 8 mg/dL (8.4-25.7); Calc. Creatinine Clearance 118 mL/min (70-130); Calcium 8.4 mg/dL (7.8-10.44); Carbon Dioxide 26 mmol/L (23-31); Chloride 110 mmol/L (98-107); Estimated GFR-MDRD Greater than 90; Glucose 106 mg/dL (80-115); Sodium 142 mmol/L (136-145)
[2019-06-21] MEDS: Ondansetron PF 4 MG/2 ML Vial IVP SCH ×3 (05:20→17:13)
[2019-06-21] MEDS: ALPRAZolam 0.5 MG TAB PO SCH ×3 (08:05→20:17)
[2019-06-21] MEDS: NS 0.9% w/ 20 MEQ KCL 1,000 ML IV SCH (08:41)
--- NOTE | 2019-06-21 09:46 | CON ---
DATE OF CONSULTATION: HISTORY OF PRESENT ILLNESS: Brandon Vasquez is a 64-year-old male patient with severe rheumatoid arthritis and has Lisfranc type deformity, left foot. He has been seen by Dr. Valenzuela in the past. He has had foot surgery by Dr. Valenzuela. He is followed by Dr. Boucher. He presented to the emergency room and noted to have some abnormalities of the plantar proximal left foot near the arch. Dr. Myles made a small opening in the emergency room, and the patient tells me there was nothing really drained. Since being in the hospital, he has had plain x-rays and MRI without significant findings except for degenerative Lisfranc type findings. I have been asked to see him. ALLERGIES: 1. MEPERIDINE. 2. SULFA. SOCIAL HISTORY: Tobacco, none. Alcohol, none. MEDICATIONS: As an outpatient, he has: 1. Garlic. 2. Fentanyl (Duragesic) patch. 3. Iron. 4. Aspirin. 5. Apresoline. 6. Multivitamins. 7. Protonix. 8. Crestor. In the hospital, he is on vancomycin and cefepime. PHYSICAL EXAMINATION: VITAL SIGNS: Temperature 97.6, heart rate 76, blood pressure 110/56. EXTREMITIES: Left foot; palpable pulses. Plantar left foot proximal arch reveals a 4 mm opening with healthy granulation tissue without significant tracking. There is no redness, nor cellulitis. LABORATORY DATA: MRI scan and plain x-rays as noted above. ASSESSMENT AND PLAN: Superficial wound, left plantar foot. There is no operative intervention necessary. In my opinion, antibiotics can be discontinued. He can be discharged home to wash the foot wound with soap and water daily and apply antibiotic ointment and Band-Aid. I will see him as needed this hospitalization. He can follow up with Dr. Boucher or Dr. Valenzuela as an outpatient. Job ID: [id number]
[2019-06-21 17:20] LABS: Iron 12 ug/dL (65-175); Iron Binding Capacity, Total 149 mcg/dL (261-462)
[2019-06-21 17:47] LABS: Ferritin 134.06 ng/mL (22-322)
[2019-06-21] MEDS: fentaNYL 50 mcg/hour Patch TD SCH (20:15)
--- NOTE | 2019-06-21 20:59 | CON ---
DATE OF CONSULTATION: REASON FOR CONSULT: Pancytopenia. HISTORY OF PRESENT ILLNESS: Mr. Vasquez is a pleasant 64-year-old gentleman with severe rheumatoid arthritis, who over the past year has lost over 80 pounds secondary to him being unable to feed himself because of contractures. He presented to his primary care for generalized weakness. He was noted to have an abscess and was sent to the emergency room for further evaluation. He had lab drawn, which showed a white count of 1.9, hemoglobin of 11.5, and a platelet count of 102,000. His cells were microcytic. This was progression of pancytopenia from lab drawn in February, which showed a white count of 2.3, hemoglobin of 10.9 and a platelet count of 118,000. The patient denies any recent fevers or prolonged illnesses. No night sweats. He denies any bleeding. He was seen by Dr. Uribe here and had an MRI of his left foot, which showed diabetic neuropathic changes involving the Lisfranc joint. There were no other lesions noted. He had a CRP, which was elevated. He did receive antibiotics, which have now been discontinued. He is on iron pills and fentanyl patch long-term. PAST MEDICAL HISTORY: 1. Rheumatoid arthritis. 2. Dyslipidemia. 3. Anxiety. 4. Chronic pain. PAST SURGICAL HISTORY: Multiple orthopedic surgeries. Last endoscopy was in June 2017. ALLERGIES: NO KNOWN DRUG ALLERGIES. HOME MEDICATIONS: 1. Alprazolam. 2. Ecotrin. 3. Duragesic. 4. Iron. 5. Multivitamin. 6. Protonix. 7. Crestor. FAMILY HISTORY: No known history of blood disorder. SOCIAL HISTORY: Single. Lives alone with his sister close by. No alcohol, tobacco, or illicit drug use. REVIEW OF SYSTEMS: A 10-point review of systems is negative except for noted in HPI. PHYSICAL EXAMINATION: VITAL SIGNS: Temperature is 97.6, pulse is 76, respiratory rate 16, BP is 110/56. GENERAL: This is a disheveled male, in no acute distress. HEENT: Normocephalic, atraumatic. Pupils are equal and reactive to light. NECK: Supple. CV: Regular rate and rhythm. LUNGS: Clear. ABDOMEN: Soft and nontender. Bowel sounds are positive. EXTREMITIES: No clubbing or cyanosis. LYMPH: There is no palpable lymphadenopathy. EXTREMITIES: He has contractures in his hands and wrists. NEUROLOGICAL: Nonfocal. PSYCHIATRIC: He is alert and oriented. PERTINENT LABS AND X-RAYS: Current WBCs are 1.5, hemoglobin 8.9, hematocrit 27.6, platelet count is 79,000. He has 20% neutrophils, 66% lymphocytes. PT 15.1, INR is 1.2, PTT is 31.4. Sodium is 142, potassium 4.0, chloride 110, CO2 is 26, BUN is 8, creatinine is 0.71, calcium 8.4, bilirubin is 0.7, AST 17, ALT is 10, and alkaline phosphatase is 80. Serum total protein is 8.1, albumin 3.9, globulin 4.2. C-reactive protein is 7.49. He had a flow cytometry in March 2018, which was negative. ASSESSMENT: 1. Pancytopenia with a microcytic anemia. 2. Rheumatoid arthritis. 3. 80-pound weight loss. DISCUSSION: The patient states that he has lost weight due to inability to cook for himself. He states he eats "junk." He has had a flow cytometry approximately a year ago, which was negative. It is unclear why this was drawn as his white count and his platelets were normal. His differential was normal as well. On review of lab, I see no B12 or folic acid, which certainly could cause a pancytopenia. We will draw these now. Also do iron studies as he has microcytic anemia. If all of these values are normal, we will consider repeat flow cytometry. The patient has lost significant weight and admits this is due to inability to feed himself. He may need to be moved to a facility, where he can have someone help him with his meals. Thank you for the consult. We will follow along with his hospital course. Job ID: [id number]
[2019-06-22] MEDS: Ondansetron PF 4 MG/2 ML Vial IVP SCH ×4 (00:11→17:49)
[2019-06-22] MEDS: Cefepime 2 GM in Sodium Chloride 0.9% 100 ML IVPB SCH ×3 (02:17→17:47)
[2019-06-22] MEDS: Fentanyl 100 MCG/2 ML VIAL SLOW IVP PRN ×6 (02:30→21:04)
[2019-06-22 04:19] LABS: Anion Gap 11 mmol/L (10-20); BUN (Urea Nitrogen) 7 mg/dL (8.4-25.7); Calc. Creatinine Clearance 135 mL/min (70-130); Calcium 8.3 mg/dL (7.8-10.44); Carbon Dioxide 28 mmol/L (23-31); Chloride 103 mmol/L (98-107); Estimated GFR-MDRD Greater than 90; Glucose 98 mg/dL (80-115); Potassium 3.7 mmol/L (3.5-5.1); Sodium 138 mmol/L (136-145)
[2019-06-22 05:15] LABS: #Eosinphils 0.2 thou/uL (0.0-0.7); #Lymphocytes 0.6 thou/uL (1.20-3.40); #Monocytes 0.2 thou/uL (0.11-0.59); #Neutrophils 0.4 thou/uL (1.40-6.50); %Basophils 1.3 % (0.0-1.0); %Eosinophils 15.2 % (0.0-10.0); %Lymphocytes 44.3 % (21.0-51.0); %Monocytes 13.3 % (0.0-10.0); Hemoglobin 8.9 g/dL (14.0-18.0); Mean Corpuscular HGB CONC 32.5 g/dL (32.0-36.0); Mean Corpuscular Hemoglobin 24.9 pg (27.0-31.0); Mean Corpuscular Volume 76.6 fL (78.0-98.0); Mean Platelet Volume 8.7 fL (7.4-10.4); Platelet Count 81 thou/uL (130-400); RBC Distribution Width 13.6 % (11.5-14.5); Red Blood Cell (RBC) Count 3.59 mill/uL (4.70-6.10); White Blood Cell (WBC) Count 1.5 thou/uL (4.8-10.8)
[2019-06-22] MEDS: Vancomycin 1.5 GRAM/300 ML BAG 1.5 GM in Premix Bag 1 BAG IVPB SCH ×2 (08:32→21:08)
[2019-06-22] MEDS: ALPRAZolam 0.5 MG TAB PO SCH ×3 (08:32→20:35)
--- NOTE | 2019-06-22 16:25 | ULT ---
Sonogram spleen HISTORY: Splenomegaly. FINDINGS: Spleen has a heterogeneous echotexture. No focal mass. It measures 21.9 cm length by 12.0 cm width by 0.7 cm depth. IMPRESSION: Severe splenomegaly.
[2019-06-22 20:43] LABS: Vancomycin, Trough 23.2 ug/mL
[2019-06-23] MEDS: Ondansetron PF 4 MG/2 ML Vial IVP SCH ×4 (00:28→18:35)
[2019-06-23] MEDS: Fentanyl 100 MCG/2 ML VIAL SLOW IVP PRN ×6 (01:07→20:18)
[2019-06-23] MEDS: Cefepime 2 GM in Sodium Chloride 0.9% 100 ML IVPB SCH ×3 (01:08→17:57)
[2019-06-23] MEDS: Cyclobenzaprine 10 MG TAB PO PRN ×2 (04:52→20:18)
[2019-06-23 05:31] LABS: Band 2 % (5-11); Elliptocytes SLIGHT = 2-5 cells (100X) (0-1/hpf); Eosinophils 9 % (0-10); Hemoglobin 9.5 g/dL (14.0-18.0); Lymphocytes 54 % (21-51); MDiff Complete? YES; Mean Corpuscular HGB CONC 31.9 g/dL (32.0-36.0); Mean Corpuscular Hemoglobin 24.2 pg (27.0-31.0); Mean Platelet Volume 9.1 fL (7.4-10.4); Monocytes 18 % (0-10); Neutrophil 16 % (42-75); Platelet Count 93 thou/uL (130-400); Platelet Morphology Comment Appears Decreased; RBC Distribution Width 13.8 % (11.5-14.5); Red Blood Cell (RBC) Count 3.91 mill/uL (4.70-6.10); White Blood Cell (WBC) Count 1.4 thou/uL (4.8-10.8)
[2019-06-23] MEDS: Vancomycin HCl 1 GM in Premix Bag 1 BAG IVPB SCH ×2 (05:45→18:35)
[2019-06-23] MEDS ORDERED: Fluconazole 100 MG TAB PO SCH (09:30)
[2019-06-23] MEDS: ALPRAZolam 0.5 MG TAB PO SCH ×3 (09:53→20:18)
[2019-06-23] MEDS: Nystatin Powder 15 GM BOT TOP SCH (10:10)
[2019-06-24] MEDS: Ondansetron PF 4 MG/2 ML Vial IVP SCH ×4 (00:12→17:53)
[2019-06-24] MEDS: Fentanyl 100 MCG/2 ML VIAL SLOW IVP PRN ×7 (00:12→20:55)
[2019-06-24] MEDS: Cefepime 2 GM in Sodium Chloride 0.9% 100 ML IVPB SCH ×3 (02:22→17:53)
[2019-06-24] MEDS: Vancomycin HCl 1 GM in Premix Bag 1 BAG IVPB SCH ×2 (05:13→18:23)
[2019-06-24] MEDS: Cyclobenzaprine 10 MG TAB PO PRN ×2 (05:14→16:40)
[2019-06-24] MEDS: ALPRAZolam 0.5 MG TAB PO SCH ×3 (09:06→20:57)
[2019-06-24] MEDS: Fluconazole 100 MG TAB PO SCH (09:06)
[2019-06-24 10:54] LABS: INR-International Normal Ratio 1.1; PTT 32.3 SEC (22.9-36.1); Prothrombin Time 14.1 SEC (12.0-14.7)
[2019-06-24] MEDS ORDERED: Midazolam HCl 2 mg/2 ml Vial ONE (12:50)
[2019-06-24] MEDS ORDERED: Fentanyl 100 MCG/2 ML VIAL ONE (12:50)
[2019-06-24 15:10] LABS: A/G Ratio 0.8 (0.7-1.7); Albumin 2.5 g/dL (2.9-4.4); Alpha 1 0.3 g/dL (0.0-0.4); Alpha 2 0.7 g/dL (0.4-1.0); Beta 0.8 g/dL (0.7-1.3); Gamma 1.2 g/dL (0.4-1.8); M-Spike Not Observed g/dL (Not Observed)
[2019-06-24] MEDS: TBO-Filgrastim 300 MCG/0.5 ML VIAL SC SCH (15:17)
--- NOTE | 2019-06-24 15:41 | PQF ---
DAVID ENCISO MICHAEL E MD [id number] CLINICAL DOCUMENTATION IMPROVEMENT CLARIFICATION FORM: ICD-10 Updated PLEASE DO AN ADDENDUM TO THE PROGRESS NOTE WITH ANY DOCUMENTATION UPDATES OR ADDITIONS AND CARRY THROUGH TO DC SUMMARY. THANK YOU. Date: 06/24/2019, 06/25/2019 ATTN: DR. Jos SCHULTZ Please exercise your independent, professional judgment in responding to the clarification form. Clinical indicators are provided on the bottom of this form for your review. Please check appropriate box(s): [ X ] Protein Calorie Malnutrition: [ ] Mild [ ] Moderate [ X ] Severe [ ] Other Malnutrition (please specify) __ [ ] Underweight without malnutrition [ ] Other diagnosis [ ] Unable to determine In addition, please specify: Present on Admission (POA): [ X ] Yes [ ] No [ ] Unable to determine CLINICAL INDICATORS - SIGNS / SYMPTOMS / LABS / RESULTS AND LOCATION IN MR 06/20 H&P (ANTOINE) PT WITH SEVERE DEBILITATING RA, HOMEBOUND FOR OVER A YEAR, UNABLE TO CARE FOR HIMSELF WITH CONTRACTURES. ARRIVED DR. SCHULTZ' OFFICE ON DAY OF ADMISSION WITH SIGNIFICANT WEIGHT LOSS AND GENERAL WEAKNESS . HE WAS VERY WEAK AND MALNOURISHED WELL. 06/21 ASSESSMENT: NUTRITION DX MALNUTRITION EVIDENCED BY --26% WEIGHT LOSS IN THE LAST YEAR SUGGESTIVE OF SEVERE MALNUTRITION IN THE CONTEXT OF CHRONIC DISEASE AND SOCIA/ENVIRONMENTAL CIRCUMSTANCES. 06/21 CONSULT (NILSA) 80 POUND WEIGHT LOSS SECONDARY TO HIM BEING UNABLE TO FEED HIMSELF BECAUSE OF CONTRACTURES. RISK: SEVERE DEBILITATING RA, SIGNIFICANT MEDICAL NONCOMPLIANCE, PAST SUBSTANCE ABUSE WITH PRESCRIPTION MEDICATIONS, DEPRESSION ( H&P/ANTOINE) 06/20 TREATMENTS: DIETARY CONSULT (06/21 ENSURE ENLIVE BID Moderate Malnutrition (in acute illness) Energy Intake : < 75% of estimated energy requirement for > 7 days Weight Loss: 1-2%/1 week; 5%/ 1 month; 7.5%/3 months Other: mild body fat loss; mild muscle mass loss; mild fluid accumulation; Severe Malnutrition (in acute illness) Energy Intake: < 50% of estimated energy requirement for > 5 days Weight Loss: >1-2%/1 week; >5%/1 month; >7.5%/3 months Other: moderate body fat loss; moderate muscle mass loss; moderate- severe fluid accumulation; measurably reduced meteorological aide strength Moderate Malnutrition (in chronic illness) Energy Intake: <75% of estimated energy requirement for >1 month Weight Loss: 5%/1 month; 7.5%/3 months; 10%/6 months; 20%/1 year Other: mild body fat loss; mild muscle mass loss; mild fluid accumulation Severe Malnutrition (in chronic illness) Energy Intake: <75% of estimated energy requirement for >1 month Weight Loss: >5%/1 month; >7.5%/3 months; >10%/6 months; >20%/1 year Other: severe body fat loss; severe muscle mass loss; severe fluid accumulation ; measurably reduced meteorological aide strength THANK YOU! NARCISO (This form is maintained as a part of the permanent medical record) 2014 [employer] All Rights Reserved MARIO [email or web address] [phone] Moderate Malnutrition (in acute illness) Energy Intake: <75% of estimated energy requirement for > 7 days MTDD
[2019-06-24 17:26] LABS: Vancomycin, Trough 17.1 ug/mL
[2019-06-24] MEDS: fentaNYL 50 mcg/hour Patch TD SCH (19:15)
[2019-06-24] MEDS: Nystatin Powder 15 GM BOT TOP SCH (19:18)
[2019-06-25] MEDS: Ondansetron PF 4 MG/2 ML Vial IVP SCH ×5 (00:04→23:44)
[2019-06-25] MEDS: Fentanyl 100 MCG/2 ML VIAL SLOW IVP PRN ×6 (00:04→22:32)
[2019-06-25] MEDS: Cefepime 2 GM in Sodium Chloride 0.9% 100 ML IVPB SCH ×3 (02:55→18:21)
[2019-06-25] MEDS: Vancomycin HCl 1 GM in Premix Bag 1 BAG IVPB SCH ×2 (05:42→18:13)
[2019-06-25 05:45] LABS: Hemoglobin 9.4 g/dL (14.0-18.0); Mean Corpuscular HGB CONC 32.8 g/dL (32.0-36.0); Mean Corpuscular Hemoglobin 24.9 pg (27.0-31.0); Mean Corpuscular Volume 75.9 fL (78.0-98.0); Mean Platelet Volume 8.8 fL (7.4-10.4); Platelet Count 71 thou/uL (130-400); RBC Distribution Width 13.9 % (11.5-14.5); White Blood Cell (WBC) Count 2.1 thou/uL (4.8-10.8)
[2019-06-25 05:46] LABS: Band 2 % (5-11); Eosinophils 4 % (0-10); Hypochromia SLIGHT = 6-15 cells (100X) (0-5/hpf); Lymphocytes 36 % (21-51); MDiff Complete? YES; Monocytes 18 % (0-10); Neutrophil 40 % (42-75); Platelet Morphology Comment Appears Decreased
[2019-06-25] MEDS ORDERED: Sodium Bicarbonate 2.5 MEQ/5 ML VIAL ONE (08:53)
[2019-06-25] MEDS ORDERED: Fentanyl 100 MCG/2 ML VIAL ONE (08:53)
[2019-06-25] MEDS ORDERED: TBO-Filgrastim 300 MCG/0.5 ML VIAL SC SCH (09:00)
[2019-06-25] MEDS: Fluconazole 100 MG TAB PO SCH (10:11)
[2019-06-25] MEDS: ALPRAZolam 0.5 MG TAB PO SCH ×3 (10:11→20:36)
--- NOTE | 2019-06-25 10:22 | CT ---
CT GUIDED RIGHT ILIAC BONE MARROW ASPIRATION AND BIOPSY: CLINICAL HISTORY: Felty's syndrome with neutropenia.. PROCEDURE: The procedure including the risks and complications were explained to the patient, and informed conse nt was obtained. The patient was placed on the CT scan table in the prone position. Noncontrasted CT images were obtained through the pelvis. An area was marked overlying the right lionel c bone, and the area was meticulously prepped and draped in usual sterile fashion. The skin and subcutaneous tissues were infiltrated with buffered 1% lidocaine for local anesthesia. After a small skin incision was made, an 11-gauge needle was advanced and positioning was confirmed w ith axial CT images. Approximately 9 milliliters of bone marrow aspirate was obtained. The needle was then further advanced, and a bone marrow biopsy was performed. The needle was removed, and hemost asis was achieved with direct pressure. The patient tolerated the procedure well and without immediate complication. The patient was transported to radiology nurses holding area for further dany toring prior to discharge. IMPRESSION: Technically successful percutaneous bone marrow aspiration and biopsy. Pathology results are pending.
[2019-06-25] MEDS: Nystatin Powder 15 GM BOT TOP SCH (12:31)
--- NOTE | 2019-06-25 14:54 | PDOC.MOPN ---
Interval History: c/o pain after bone marrow biopsy - Vital Signs Vital Signs: Vital Signs (12 hours) Temp Pulse Resp BP Pulse Ox 06/25/19 07:57 98.6 F 71 18 115/62 98 Weight Admit Weight 177 lb Weight 177 lb - Physical Exam General: Alert, Oriented x3, No acute distress HEENT: Atraumatic Lungs: Clear to auscultation, Normal air movement Cardiovascular: Regular rate, Normal S1, Normal S2, No murmurs, Gallops, Rubs Abdomen: Other (splenomegaly) Extremities: Other (contractures BUE) Neurological: Normal speech - Labs Result Diagrams: 06/25/19 05:06 06/22/19 03:47 Lab results: Laboratory Results - last 24 hr 06/25/19 05:06: WBC 2.1 L, RBC 3.80 L, Hgb 9.4 L, Hct 28.8 L, MCV 75.9 L, MCH 24.9 L, MCHC 32.8, RDW 13.9, Plt Count 71 L, MPV 8.8, Neutrophils % (Manual) 40 L, Band Neuts % (Manual) 2 L, Lymphocytes % (Manual) 36, Monocytes % (Manual) 18 H, Eosinophils % (Manual) 4, Hypochromia SLIGHT = 6-15 cells, Plt Morphology Comment Appears Decreased L 06/24/19 17:03: Vancomycin Trough 17.1 06/21/19 16:51: Globulin 3.0, Albumin/Globulin Ratio 0.8, Yhiea-1-Vvbybhlbs 0.3 , Ecxcn-1-Ouumbgzmv 0.7, Beta Globulins 0.8, Gamma Globulins 1.2, M-Edward Not Observed, PEP Note , PEP Interpretation , Total Protein (LORA) 5.5 L, Albumin ( LORA) 2.5 L Status: lab reviewed by me A/P - Problem (1) Pancytopenia Current Visit: Yes Code(s): D61.818 - OTHER PANCYTOPENIA Status: Acute (2) Felty's syndrome Current Visit: Yes Code(s): M05.00 - FELTY'S SYNDROME, UNSPECIFIED SITE Status: Acute - Plan Plan: await bone marrow results One time dose pain meds for pain associated with biopsy daily CBC
[2019-06-25] MEDS ORDERED: HYDROcodone/Acetaminophen 5/325 mg Tablet PO SCH (15:00)
[2019-06-25 15:28] LABS: ANA Symphony (Qualitative) Negative (Negative); ANA Symphony (Quantitative) 0.2 Ratio (< 0.7 Negative); dsDNA IgG Antibody 0.5 IU/mL (<10 Negative)
[2019-06-25] MEDS: TBO-Filgrastim 300 MCG/0.5 ML VIAL SC SCH (15:38)
[2019-06-25 15:51] LABS: CCP IgG Antibody Greater than 340.0 EliAU/mL (<7 Negative); EliA RAS New Method **** NEW METHOD ****; Rheumatoid Factor IgM Antibody Greater than 200.0 IU/mL (<3.5 Negative)
[2019-06-25 16:09] LABS: Alpha 2 - Ur 15.2 % (.); Beta-Ur 25.3 % (.); Gamma-Ur 46.4 % (.); M-Spike,% Not Observed % (Not Observed); Protein, Urine 6.1 mg/dL (Not Estab.)
[2019-06-25] MEDS: BIOTENE MOUTH SPRAY 44.3 ML MM SCH (20:37)
[2019-06-26] MEDS: Cefepime 2 GM in Sodium Chloride 0.9% 100 ML IVPB SCH ×3 (02:24→17:12)
[2019-06-26] MEDS: Vancomycin HCl 1 GM in Premix Bag 1 BAG IVPB SCH ×2 (04:59→18:07)
[2019-06-26] MEDS: Ondansetron PF 4 MG/2 ML Vial IVP SCH ×3 (04:59→18:07)
[2019-06-26] MEDS: Fentanyl 100 MCG/2 ML VIAL SLOW IVP PRN ×5 (04:59→21:12)
[2019-06-26] MEDS: Nystatin Powder 15 GM BOT TOP SCH (08:40)
[2019-06-26] MEDS: BIOTENE MOUTH SPRAY 44.3 ML MM SCH ×2 (08:40→20:11)
[2019-06-26] MEDS: Fluconazole 100 MG TAB PO SCH (08:41)
[2019-06-26] MEDS: ALPRAZolam 0.5 MG TAB PO SCH ×3 (08:41→20:10)
[2019-06-26 13:42] LABS: Hemoglobin 11.7 g/dL (14.0-18.0); Mean Corpuscular HGB CONC 31.9 g/dL (32.0-36.0); Mean Corpuscular Hemoglobin 24.2 pg (27.0-31.0); Mean Corpuscular Volume 75.8 fL (78.0-98.0); Mean Platelet Volume 10.3 fL (7.4-10.4); Platelet Count 84 thou/uL (130-400); RBC Distribution Width 14.2 % (11.5-14.5); Red Blood Cell (RBC) Count 4.85 mill/uL (4.70-6.10); White Blood Cell (WBC) Count 3.9 thou/uL (4.8-10.8)
[2019-06-26 14:18] LABS: Band 27 % (5-11); Eosinophils 12 % (0-10); Hypochromia SLIGHT = 6-15 cells (100X) (0-5/hpf); Lymphocytes 21 % (21-51); MDiff Complete? YES; Metamyelocyte 1 % (0-0); Microcytosis SLIGHT = 6-15 cells (100X) (0-5/hpf); Monocytes 10 % (0-10); Neutrophil 26 % (42-75); Ovalocytes SLIGHT = 2-5 cells (100X) (0-1/hpf); Platelet Morphology Comment Appears Decreased; Polychromasia SLIGHT = 2-3 cells (100X) (0-2/hpf)
[2019-06-26] MEDS: TBO-Filgrastim 300 MCG/0.5 ML VIAL SC SCH (17:08)
[2019-06-26] MEDS: Cyclobenzaprine 10 MG TAB PO PRN (18:09)
[2019-06-27] MEDS: Ondansetron PF 4 MG/2 ML Vial IVP SCH ×3 (00:58→13:46)
[2019-06-27] MEDS: Cefepime 2 GM in Sodium Chloride 0.9% 100 ML IVPB SCH ×3 (02:40→17:54)
[2019-06-27 05:26] LABS: Band 25 % (5-11); Elliptocytes MODERATE= 6-15 cells (100X) (0-1/hpf); Eosinophils 6 % (0-10); Hemoglobin 9.3 g/dL (14.0-18.0); Hypochromia SLIGHT = 6-15 cells (100X) (0-5/hpf); Lymphocytes 16 % (21-51); MDiff Complete? YES; Mean Corpuscular Hemoglobin 23.7 pg (27.0-31.0); Mean Corpuscular Volume 76.7 fL (78.0-98.0); Mean Platelet Volume 9.6 fL (7.4-10.4); Microcytosis SLIGHT = 6-15 cells (100X) (0-5/hpf); Monocytes 28 % (0-10); Neutrophil 23 % (42-75); Platelet Count 63 thou/uL (130-400); Platelet Morphology Comment Appears Decreased; RBC Distribution Width 14.2 % (11.5-14.5); Reactive Lymphocytes 1 % (0-10); Red Blood Cell (RBC) Count 3.91 mill/uL (4.70-6.10); Vacuoles SLIGHT; White Blood Cell (WBC) Count 4.1 thou/uL (4.8-10.8)
[2019-06-27] MEDS: Vancomycin HCl 1 GM in Premix Bag 1 BAG IVPB SCH (05:31)
[2019-06-27] MEDS: Fentanyl 100 MCG/2 ML VIAL SLOW IVP PRN ×3 (05:31→15:35)
[2019-06-27] MEDS: ALPRAZolam 0.5 MG TAB PO SCH ×3 (09:46→20:51)
[2019-06-27] MEDS: BIOTENE MOUTH SPRAY 44.3 ML MM SCH ×2 (09:46→20:51)
[2019-06-27] MEDS: Fluconazole 100 MG TAB PO SCH (09:46)
[2019-06-27] MEDS: Nystatin Powder 15 GM BOT TOP SCH (09:47)
[2019-06-27] MEDS: Cyclobenzaprine 10 MG TAB PO PRN (11:37)
[2019-06-27] MEDS: TBO-Filgrastim 300 MCG/0.5 ML VIAL SC SCH (16:59)
[2019-06-27 17:15] LABS: Vancomycin, Trough 22.5 ug/mL
[2019-06-27] MEDS: Vancomycin HCl 750 MG in Sodium Chloride 0.9% 250 ML 250 ML IVPB SCH (18:32)
[2019-06-27] MEDS: fentaNYL 50 mcg/hour Patch TD SCH (19:20)
[2019-06-28] MEDS: Cefepime 2 GM in Sodium Chloride 0.9% 100 ML IVPB SCH ×3 (02:42→18:06)
[2019-06-28 05:14] LABS: Anion Gap 9 mmol/L (10-20); BUN (Urea Nitrogen) 12 mg/dL (8.4-25.7); Calc. Creatinine Clearance 103 mL/min (70-130); Calcium 8.7 mg/dL (7.8-10.44); Carbon Dioxide 35 mmol/L (23-31); Chloride 101 mmol/L (98-107); Estimated GFR-MDRD Greater than 90; Glucose 102 mg/dL (80-115); Potassium 3.4 mmol/L (3.5-5.1); Sodium 142 mmol/L (136-145)
[2019-06-28 05:16] LABS: Hemoglobin 9.4 g/dL (14.0-18.0); MDiff Complete? YES; Mean Corpuscular HGB CONC 31.4 g/dL (32.0-36.0); Mean Corpuscular Hemoglobin 24.4 pg (27.0-31.0); Mean Corpuscular Volume 77.6 fL (78.0-98.0); Mean Platelet Volume 9.7 fL (7.4-10.4); Platelet Count 59 thou/uL (130-400); RBC Distribution Width 14.4 % (11.5-14.5); Red Blood Cell (RBC) Count 3.85 mill/uL (4.70-6.10); White Blood Cell (WBC) Count 5.4 thou/uL (4.8-10.8)
[2019-06-28 05:17] LABS: Band 5 % (5-11); Eosinophils 1 % (0-10); Lymphocytes 20 % (21-51); Monocytes 15 % (0-10); Neutrophil 59 % (42-75); Platelet Morphology Comment Appears Decreased
[2019-06-28] MEDS: Vancomycin HCl 750 MG in Sodium Chloride 0.9% 250 ML 250 ML IVPB SCH ×2 (05:42→18:06)
[2019-06-28] MEDS: Fluconazole 100 MG TAB PO SCH (08:48)
[2019-06-28] MEDS: ALPRAZolam 0.5 MG TAB PO SCH ×3 (08:48→20:37)
[2019-06-28] MEDS: Nystatin Powder 15 GM BOT TOP SCH (08:49)
[2019-06-28] MEDS: BIOTENE MOUTH SPRAY 44.3 ML MM SCH ×2 (08:50→20:37)
[2019-06-28] MEDS: HYDROcodone/Acetaminophen 10/325 mg Tablet PO PRN ×3 (08:52→20:41)
[2019-06-28] MEDS ORDERED: Triple Antibiotic Ointment 15 GM TUBE TOP PRN (11:34)
[2019-06-28] MEDS ORDERED: Milk Of Magnesia 30 ML UDCUP PO SCH (11:45)
--- NOTE | 2019-06-28 13:58 | PDOC.MOPN ---
Interval History: doing well. just showered - Vital Signs Vital Signs: Vital Signs (12 hours) Temp Pulse Resp BP Pulse Ox 06/28/19 12:00 98.9 F 78 18 124/72 98 06/28/19 08:00 98.2 F 76 18 108/61 96 06/28/19 04:00 98.5 F 80 16 124/64 97 Weight Admit Weight 177 lb Weight 177 lb - Physical Exam General: Alert, Oriented x3, No acute distress HEENT: Atraumatic, PERRLA, EOMI, Mucous membr. moist/pink Lungs: Clear to auscultation, Normal air movement Cardiovascular: Regular rate, Normal S1, Normal S2, No murmurs, Gallops, Rubs Skin: No rashes, No breakdown, No significant lesion Neurological: Normal speech - Labs Result Diagrams: 06/28/19 04:45 06/28/19 04:44 Lab results: Laboratory Results - last 24 hr 06/28/19 04:45: WBC 5.4, RBC 3.85 L, Hgb 9.4 L, Hct 29.9 L, MCV 77.6 L, MCH 24.4 L, MCHC 31.4 L, RDW 14.4, Plt Count 59 L, MPV 9.7, Neutrophils % (Manual) 59, Band Neuts % (Manual) 5, Lymphocytes % (Manual) 20 L, Monocytes % (Manual) 15 H, Eosinophils % (Manual) 1, Plt Morphology Comment Appears Decreased L 06/28/19 04:44: Sodium 142, Potassium 3.4 L, Chloride 101, Carbon Dioxide 35 H, Anion Gap 9 L, BUN 12, Creatinine 0.81, Estimated GFR (MDRD) Greater than 90, Glucose 102, Calcium 8.7 06/27/19 16:48: Vancomycin Trough 22.5 Status: lab reviewed by me A/P - Problem (1) Pancytopenia Current Visit: Yes Code(s): D61.818 - OTHER PANCYTOPENIA Status: Acute (2) Felty's syndrome Current Visit: Yes Code(s): M05.00 - FELTY'S SYNDROME, UNSPECIFIED SITE Status: Acute - Plan Plan: Await BMB results IV iron x 1 for low iron stores CBC in am.
[2019-06-28] MEDS ORDERED: Iron, Sodium Ferric Gluconate 250 MG in Sodium Chloride 0.9% 100 ML IVPB SCH (14:00)
[2019-06-28] MEDS ORDERED: TBO FILGRASTIM SC SCH (16:15)
[2019-06-28] MEDS ORDERED: ADMIXTURE FEE SC SCH (16:15)
[2019-06-28] MEDS ORDERED: PRE FILLED SC SCH (16:15)
[2019-06-28] MEDS: TBO-Filgrastim 300 MCG/0.5 ML VIAL SC SCH (16:18)
[2019-06-28] MEDS: Docusate 100 MG CAP PO SCH (20:37)
[2019-06-29] MEDS: Cefepime 2 GM in Sodium Chloride 0.9% 100 ML IVPB SCH ×3 (02:46→17:49)
[2019-06-29] MEDS: HYDROcodone/Acetaminophen 10/325 mg Tablet PO PRN ×4 (02:51→22:28)
[2019-06-29 05:42] LABS: Vancomycin, Trough 18.5 ug/mL
[2019-06-29 06:15] LABS: Band 25 % (5-11); Eosinophils 4 % (0-10); Hemoglobin 9.5 g/dL (14.0-18.0); Hypochromia SLIGHT = 6-15 cells (100X) (0-5/hpf); Lymphocytes 13 % (21-51); MDiff Complete? YES; Mean Corpuscular HGB CONC 29.8 g/dL (32.0-36.0); Mean Corpuscular Hemoglobin 23.3 pg (27.0-31.0); Mean Corpuscular Volume 78.4 fL (78.0-98.0); Mean Platelet Volume 9.8 fL (7.4-10.4); Metamyelocyte 1 % (0-0); Monocytes 6 % (0-10); Neutrophil 51 % (42-75); Platelet Count 65 thou/uL (130-400); Platelet Morphology Comment Appears Decreased; RBC Distribution Width 14.5 % (11.5-14.5); Red Blood Cell (RBC) Count 4.05 mill/uL (4.70-6.10); White Blood Cell (WBC) Count 8.3 thou/uL (4.8-10.8)
[2019-06-29] MEDS: Vancomycin HCl 750 MG in Sodium Chloride 0.9% 250 ML 250 ML IVPB SCH ×2 (06:19→18:27)
[2019-06-29] MEDS ORDERED: Milk Of Magnesia 30 ML UDCUP PO PRN (09:00)
[2019-06-29] MEDS: Fluconazole 100 MG TAB PO SCH (09:49)
[2019-06-29] MEDS: ALPRAZolam 0.5 MG TAB PO SCH ×3 (09:49→20:47)
[2019-06-29] MEDS: BIOTENE MOUTH SPRAY 44.3 ML MM SCH ×2 (09:51→20:48)
[2019-06-29] MEDS: Nystatin Powder 15 GM BOT TOP SCH (09:51)
--- NOTE | 2019-06-29 14:37 | PDOC.MOPN ---
Interval History: Sitting in chair. No complaints. - Vital Signs Vital Signs: Vital Signs (12 hours) Temp Pulse Resp BP Pulse Ox 06/29/19 08:00 98.3 F 79 18 125/61 95 06/29/19 03:58 98.3 F 82 16 105/59 L 94 L Weight Admit Weight 177 lb Weight 177 lb - Physical Exam General: Alert, Oriented x3, No acute distress HEENT: Atraumatic, PERRLA, EOMI, Mucous membr. moist/pink Lungs: Clear to auscultation, Normal air movement Cardiovascular: Regular rate, Normal S1, Normal S2, No murmurs, Gallops, Rubs Abdomen: Normal bowel sounds, Soft, No tenderness, No hepatospenomegaly, No masses Extremities: No clubbing, No cyanosis, No edema, Normal pulses, No tenderness/ swelling Neurological: Normal speech - Labs Result Diagrams: 06/29/19 05:01 06/28/19 04:44 Lab results: Laboratory Results - last 24 hr 06/29/19 05:01: WBC 8.3, RBC 4.05 L, Hgb 9.5 L, Hct 31.7 L, MCV 78.4, MCH 23.3 L , MCHC 29.8 L, RDW 14.5, Plt Count 65 L, MPV 9.8, Neutrophils % (Manual) 51, Band Neuts % (Manual) 25 H, Lymphocytes % (Manual) 13 L, Monocytes % (Manual) 6 , Eosinophils % (Manual) 4, Metamyelocytes % (Man) 1 H, Hypochromia SLIGHT = 6- 15 cells, Plt Morphology Comment Appears Decreased L 06/29/19 05:01: Vancomycin Trough 18.5 06/25/19 09:30: Flow Cytometry Interp Status: lab reviewed by me A/P - Problem (1) Pancytopenia Current Visit: Yes Code(s): D61.818 - OTHER PANCYTOPENIA Status: Acute (2) Felty's syndrome Current Visit: Yes Code(s): M05.00 - FELTY'S SYNDROME, UNSPECIFIED SITE Status: Acute - Plan Plan: Bone marrow biopsy most likely Felty's syndrome FISH analysis pending Hold Francisca Follow-up next week with Dr. braswell to discuss FISH results.
[2019-06-29] MEDS ORDERED: TBO-Filgrastim 300 MCG/0.5 ML VIAL SC SCH (15:00)
[2019-06-29] MEDS: Docusate 100 MG CAP PO SCH (20:48)
[2019-06-30] MEDS: Cefepime 2 GM in Sodium Chloride 0.9% 100 ML IVPB SCH ×2 (02:59→10:41)
[2019-06-30 04:30] LABS: Band 2 % (5-11); Eosinophils 9 % (0-10); Hemoglobin 11.5 g/dL (14.0-18.0); Lymphocytes 23 % (21-51); MDiff Complete? YES; Mean Corpuscular HGB CONC 31.8 g/dL (32.0-36.0); Mean Corpuscular Hemoglobin 24.9 pg (27.0-31.0); Mean Corpuscular Volume 78.5 fL (78.0-98.0); Mean Platelet Volume 9.3 fL (7.4-10.4); Monocytes 9 % (0-10); Neutrophil 56 % (42-75); Platelet Count 83 thou/uL (130-400); Platelet Morphology Comment Appears Decreased; RBC Distribution Width 15.1 % (11.5-14.5); Red Blood Cell (RBC) Count 4.61 mill/uL (4.70-6.10); White Blood Cell (WBC) Count 9.8 thou/uL (4.8-10.8)
[2019-06-30] MEDS: HYDROcodone/Acetaminophen 10/325 mg Tablet PO PRN ×4 (04:34→22:48)
[2019-06-30] MEDS: Vancomycin HCl 750 MG in Sodium Chloride 0.9% 250 ML 250 ML IVPB SCH ×2 (05:44→07:35)
[2019-06-30] MEDS: Fluconazole 100 MG TAB PO SCH (08:55)
[2019-06-30] MEDS: Nystatin Powder 15 GM BOT TOP SCH (08:56)
[2019-06-30] MEDS: BIOTENE MOUTH SPRAY 44.3 ML MM SCH ×2 (08:57→20:03)
[2019-06-30] MEDS: ALPRAZolam 0.5 MG TAB PO SCH ×3 (09:56→20:41)
[2019-06-30] MEDS: fentaNYL 50 mcg/hour Patch TD SCH (19:58)
[2019-06-30] MEDS: Docusate 100 MG CAP PO SCH (20:03)
[2019-07-01 04:37] LABS: Band 5 % (5-11); Eosinophils 2 % (0-10); Hemoglobin 9.6 g/dL (14.0-18.0); Hypochromia SLIGHT = 6-15 cells (100X) (0-5/hpf); Lymphocytes 40 % (21-51); MDiff Complete? YES; Mean Corpuscular HGB CONC 31.4 g/dL (32.0-36.0); Mean Corpuscular Volume 76.5 fL (78.0-98.0); Mean Platelet Volume 10.2 fL (7.4-10.4); Monocytes 8 % (0-10); Neutrophil 45 % (42-75); Nucleated RBC 1 % (0); Platelet Count 54 thou/uL (130-400); Platelet Morphology Comment Appears Decreased; RBC Distribution Width 15.1 % (11.5-14.5); Red Blood Cell (RBC) Count 3.98 mill/uL (4.70-6.10); White Blood Cell (WBC) Count 3.5 thou/uL (4.8-10.8)
[2019-07-01] MEDS: HYDROcodone/Acetaminophen 10/325 mg Tablet PO PRN ×3 (04:47→20:42)
[2019-07-01] MEDS: ALPRAZolam 0.5 MG TAB PO SCH ×3 (09:32→20:39)
[2019-07-01] MEDS: Fluconazole 100 MG TAB PO SCH (09:33)
[2019-07-01] MEDS: BIOTENE MOUTH SPRAY 44.3 ML MM SCH ×2 (09:34→20:40)
[2019-07-01] MEDS: Nystatin Powder 15 GM BOT TOP SCH (09:35)
[2019-07-01] MEDS: Docusate 100 MG CAP PO SCH (20:39)
[2019-07-02] MEDS: HYDROcodone/Acetaminophen 10/325 mg Tablet PO PRN ×4 (03:54→23:10)
[2019-07-02 04:08] LABS: #Eosinphils 0.3 thou/uL (0.0-0.7); #Lymphocytes 1.1 thou/uL (1.20-3.40); #Monocytes 0.3 thou/uL (0.11-0.59); #Neutrophils 1.7 thou/uL (1.40-6.50); %Basophils 0.6 % (0.0-1.0); %Lymphocytes 31.6 % (21.0-51.0); %Neutrophils 49.8 % (42.0-75.0); Mean Corpuscular HGB CONC 31.5 g/dL (32.0-36.0); Mean Corpuscular Hemoglobin 24.1 pg (27.0-31.0); Mean Corpuscular Volume 76.5 fL (78.0-98.0); Mean Platelet Volume 10.1 fL (7.4-10.4); Platelet Count 63 thou/uL (130-400); RBC Distribution Width 15.5 % (11.5-14.5); Red Blood Cell (RBC) Count 4.12 mill/uL (4.70-6.10); White Blood Cell (WBC) Count 3.4 thou/uL (4.8-10.8)
[2019-07-02] MEDS: ALPRAZolam 0.5 MG TAB PO SCH ×3 (08:57→20:04)
[2019-07-02] MEDS: Nystatin Powder 15 GM BOT TOP SCH (08:57)
[2019-07-02] MEDS: Fluconazole 100 MG TAB PO SCH (08:57)
[2019-07-02] MEDS: BIOTENE MOUTH SPRAY 44.3 ML MM SCH ×2 (08:58→20:05)
[2019-07-02] MEDS: fentaNYL 75 mcg/hour Patch TD SCH (09:22)
[2019-07-02] MEDS: TBO-Filgrastim 300 MCG/0.5 ML VIAL SC SCH (09:22)
[2019-07-02] MEDS: Ondansetron ODT 8 MG TAB PO PRN (10:21)
[2019-07-02] MEDS: Docusate 100 MG CAP PO SCH (20:04)
[2019-07-03] MEDS: Fluconazole 100 MG TAB PO SCH (08:21)
[2019-07-03] MEDS: ALPRAZolam 0.5 MG TAB PO SCH ×3 (08:21→21:10)
[2019-07-03] MEDS: HYDROcodone/Acetaminophen 10/325 mg Tablet PO PRN ×3 (08:22→21:11)
[2019-07-03] MEDS: Nystatin Powder 15 GM BOT TOP SCH (08:23)
[2019-07-03] MEDS: BIOTENE MOUTH SPRAY 44.3 ML MM SCH ×2 (08:25→21:11)
[2019-07-03 08:37] LABS: Band 11 % (5-11); Eosinophils 5 % (0-10); Hemoglobin 11.1 g/dL (14.0-18.0); Lymphocytes 15 % (21-51); MDiff Complete? YES; Mean Corpuscular HGB CONC 31.6 g/dL (32.0-36.0); Mean Corpuscular Hemoglobin 24.9 pg (27.0-31.0); Mean Corpuscular Volume 78.7 fL (78.0-98.0); Mean Platelet Volume 8.7 fL (7.4-10.4); Neutrophil 69 % (42-75); Platelet Count 95 thou/uL (130-400); Platelet Morphology Comment Appears Decreased; RBC Distribution Width 16.3 % (11.5-14.5); Red Blood Cell (RBC) Count 4.46 mill/uL (4.70-6.10); Reflex for Review?? NO; Toxic Granulation SLIGHT; White Blood Cell (WBC) Count 12.1 thou/uL (4.8-10.8)
[2019-07-03] MEDS: TBO-Filgrastim 300 MCG/0.5 ML VIAL SC SCH (10:04)
[2019-07-03] MEDS: Ondansetron ODT 8 MG TAB PO PRN (11:39)
[2019-07-03] MEDS: Docusate 100 MG CAP PO SCH (21:11)
[2019-07-04 03:57] LABS: #Eosinphils 0.5 thou/uL (0.0-0.7); #Lymphocytes 1.6 thou/uL (1.20-3.40); #Monocytes 0.4 thou/uL (0.11-0.59); #Neutrophils 13.7 thou/uL (1.40-6.50); %Basophils 0.3 % (0.0-1.0); %Eosinophils 3.2 % (0.0-10.0); %Lymphocytes 9.9 % (21.0-51.0); %Monocytes 2.7 % (0.0-10.0); Hemoglobin 10.5 g/dL (14.0-18.0); Mean Corpuscular HGB CONC 30.9 g/dL (32.0-36.0); Mean Corpuscular Hemoglobin 23.8 pg (27.0-31.0); Mean Corpuscular Volume 77.1 fL (78.0-98.0); Mean Platelet Volume 9.2 fL (7.4-10.4); Platelet Count 108 thou/uL (130-400); RBC Distribution Width 16.3 % (11.5-14.5); Red Blood Cell (RBC) Count 4.42 mill/uL (4.70-6.10); White Blood Cell (WBC) Count 16.3 thou/uL (4.8-10.8)
[2019-07-04] MEDS: HYDROcodone/Acetaminophen 10/325 mg Tablet PO PRN ×4 (04:27→22:34)
[2019-07-04] MEDS: Nystatin Powder 15 GM BOT TOP SCH (09:16)
[2019-07-04] MEDS: ALPRAZolam 0.5 MG TAB PO SCH ×3 (09:16→20:46)
[2019-07-04] MEDS: BIOTENE MOUTH SPRAY 44.3 ML MM SCH ×2 (09:16→20:46)
[2019-07-04] MEDS: Fluconazole 100 MG TAB PO SCH (09:16)
[2019-07-04] MEDS: Ondansetron ODT 8 MG TAB PO PRN (09:59)
[2019-07-04] MEDS: Docusate 100 MG CAP PO SCH (20:46)
[2019-07-05 03:56] VITALS: TEMP 98
[2019-07-05 04:08] LABS: #Eosinphils 0.5 thou/uL (0.0-0.7); #Lymphocytes 1.2 thou/uL (1.20-3.40); #Monocytes 0.4 thou/uL (0.11-0.59); #Neutrophils 5.7 thou/uL (1.40-6.50); %Basophils 0.6 % (0.0-1.0); %Lymphocytes 15.6 % (21.0-51.0); %Monocytes 4.9 % (0.0-10.0); %Neutrophils 72.9 % (42.0-75.0); Hemoglobin 10.5 g/dL (14.0-18.0); Mean Corpuscular HGB CONC 30.4 g/dL (32.0-36.0); Mean Corpuscular Hemoglobin 23.7 pg (27.0-31.0); Mean Corpuscular Volume 77.9 fL (78.0-98.0); Mean Platelet Volume 8.6 fL (7.4-10.4); Platelet Count 131 thou/uL (130-400); RBC Distribution Width 16.2 % (11.5-14.5); Red Blood Cell (RBC) Count 4.44 mill/uL (4.70-6.10); White Blood Cell (WBC) Count 7.8 thou/uL (4.8-10.8)
[2019-07-05] MEDS: HYDROcodone/Acetaminophen 10/325 mg Tablet PO PRN ×2 (04:27→10:38)
[2019-07-05] MEDS: ALPRAZolam 0.5 MG TAB PO SCH ×2 (08:26→14:15)
[2019-07-05] MEDS: BIOTENE MOUTH SPRAY 44.3 ML MM SCH (08:26)
[2019-07-05] MEDS: Nystatin Powder 15 GM BOT TOP SCH (08:26)
[2019-07-05] MEDS: fentaNYL 75 mcg/hour Patch TD SCH (08:53)
[2019-07-05] MEDS: Ondansetron ODT 8 MG TAB PO PRN (10:38)
[2019-07-05 14:53] VITALS: BP 122/65
[2019-07-06] MEDS ORDERED: TBO-Filgrastim 300 MCG/0.5 ML VIAL SC SCH (09:00)
== END 2019-07-05 15:40 | DRG 808 ==
LOC: ERS 10:23 → ONC 14:13
PROVIDERS: ADMIT Specialist; ATTEND Specialist
PROC: 07DR3ZX Extraction of Iliac Bone Marrow, Percutaneous Approach, Diagnostic (ICD-10-PCS; principal; 2019-06-25)
DX: D61.818 Other pancytopenia (principal); E43 Unspecified severe protein-calorie malnutrition; L03.116 Cellulitis of left lower limb; E87.1 Hypo-osmolality and hyponatremia; M05.00 Felty's syndrome, unspecified site; F32.9 Major depressive disorder, single episode, unspecified; F41.9 Anxiety disorder, unspecified; E78.5 Hyperlipidemia, unspecified; Z96.641 Presence of right artificial hip joint; M06.9 Rheumatoid arthritis, unspecified; E87.6 Hypokalemia; D64.9 Anemia, unspecified; Z88.5 Allergy status to narcotic agent; Z90.49 Acquired absence of other specified parts of digestive tract; Z68.24 Body mass index [BMI] 24.0-24.9, adult; Z88.2 Allergy status to sulfonamides
CPT/HCPCS: 10060; 20225; 36415; 76705; 77012; 80048; 80053; 80061; 80202; 82274; 82607; 82728; 82746; 83520; 83540; 83550; 84165; 84166; 85007; 85025; 85027; 85060; 85097; 85610; 85730; 86038; 86140; 86200; 86225; 87040; 87070; 87205; 88184; 88237; 88264; 88280; 88305; 88311; 88313; 88341; 88342; 88365; 93005; 93010; 96365; 96366; 96367; 96375; J0692; J1447; J2250; J2405; J2916; J3010; J3370; J3480; J3490; J7050; Q0163

== ENCOUNTER 2019-07-30 14:13 | Emergency (ER) | payer MEDICARE ==
[2019-07-30 16:01] LABS: #Eosinphils 0.2 thou/uL (0.0-0.7); #Lymphocytes 0.8 thou/uL (1.20-3.40); #Monocytes 0.4 thou/uL (0.11-0.59); %Basophils 0.5 % (0.0-1.0); %Eosinophils 3.8 % (0.0-10.0); %Lymphocytes 14.6 % (21.0-51.0); %Monocytes 8.1 % (0.0-10.0); Hemoglobin 10.6 g/dL (14.0-18.0); Mean Corpuscular HGB CONC 31.2 g/dL (32.0-36.0); Mean Corpuscular Hemoglobin 25.3 pg (27.0-31.0); Mean Corpuscular Volume 81.3 fL (78.0-98.0); Mean Platelet Volume 8.7 fL (7.4-10.4); Platelet Count 99 thou/uL (130-400); RBC Distribution Width 17.1 % (11.5-14.5); Red Blood Cell (RBC) Count 4.18 mill/uL (4.70-6.10); White Blood Cell (WBC) Count 5.4 thou/uL (4.8-10.8)
[2019-07-30 16:15] LABS: ALT (SGPT) 18 U/L (8-55); AST (SGOT) 19 U/L (5-34); Albumin 3.3 g/dL (3.4-4.8); Alkaline Phosphatase 86 U/L (40-110); Anion Gap 12 mmol/L (10-20); BUN (Urea Nitrogen) 19 mg/dL (8.4-25.7); Bilirubin, Total 0.3 mg/dL (0.2-1.2); Calc. Creatinine Clearance 0 mL/min (70-130); Calcium 8.8 mg/dL (7.8-10.44); Carbon Dioxide 29 mmol/L (23-31); Chloride 101 mmol/L (98-107); Estimated GFR-MDRD Greater than 90; Globulin 3.5 g/dL (2.4-3.5); Glucose 107 mg/dL (80-115); Potassium 3.9 mmol/L (3.5-5.1); Protein, Total 6.8 g/dL (5.8-8.1); Sodium 138 mmol/L (136-145)
--- NOTE | 2019-07-30 16:51 | RAD ---
3 views left foot: 07/30/2019 COMPARISON: 06/19/2019 HISTORY: Leg infection FINDINGS: There is postoperative hardware associated with the first metatarsal-phalangeal joint, stab le when compared to the prior exam. There are screws traversing the subtalar joint, stable as well. There are severe erosive changes involving the midfoot as before. There is widening of the Lisfranc i nterval suggesting chronic Lisfranc injury/Charcot joint. Stable postoperative and/or erosive changes are also noted at the first interphalangeal joint. There is flattening of Boehler's angle sug gesting stable remote fracture. Linear calcific density overlies the plantar aspect of the midfoot suggesting stable soft tissue calc ification. There is stable lobulated soft tissue swelling involving the plantar aspect of the midfoot and hindfoot as well as the dorsal aspect of the midfoot and hindfoot, similar when compared to prior imaging. IMPRESSION: Stable 3 view examination of the left foot as detailed above. Nonspecific soft tissue swe lling may be on the basis of cellulitis. Stable postoperative and remote posttraumatic changes as well as findings consistent with mid foot neuropathic joint/Charcot joint.
[2019-07-30] MEDS ORDERED: Morphine 4 MG/ML VIAL ONE (17:15)
[2019-07-30] MEDS ORDERED: cefTRIAXone\\ROCEPHIN 1 GM VIAL ONE (17:51)
--- NOTE | 2019-07-30 17:55 | RAD ---
RADIOGRAPH LEFT ANKLE 3 VIEWS: 07/30/19 HISTORY: 64-year-old male with left leg infection. COMPARISON: No prior ankle studies. FINDINGS: Two completely threaded screws fixating old calcaneal fracture from posterior tuberosity to distal ti ps at the anterior talar dome. Collapse and flattening of Bohler's angle. Ankylosis of posterior subt alar joint. Severe DJD at midfoot. Hardware at first metatarsal partially visualized. Narrowing of an kle mortise medially. Moderate DJD at medial and lateral aspects of ankle. Talar dome maintained. No dislocation. No acute fracture. Diffuse osteopenia. No darryl destructive osseous lesion identified. IMPRESSION: 1. No destructive osseous lesion identified in the ankle. 2. No acute ankle fracture. 3. Moderate osteoarthrosis of the ankle. 4. Status post arthrodesis of the posterior subtalar joint by two large screws to treat old calc aneal fracture. 5. Severe arthritis of midfoot. POS: TPC
== END 2019-07-30 19:46 | disposition short-term general hospital (02) ==
LOC: ERS 14:13
DX: L97.529 Non-pressure chronic ulcer of other part of left foot with unspecified severity (principal); F41.9 Anxiety disorder, unspecified; M06.9 Rheumatoid arthritis, unspecified; Z79.899 Other long term (current) drug therapy
CPT/HCPCS: 36415; 80053; 83605; 85025; 87040; 96365; 96366; 96375; J0696; J2270; J3370

== ENCOUNTER 2019-08-03 13:47 | Outpatient (CLI) | payer MEDICARE ==
--- NOTE | 2019-08-03 16:54 | MRI ---
MR of the left foot with and without contrast INDICATION: history of cellulitis and ulcer on bottom of the left foot COMPARISON: Left foot radiograph dated 07/30/2018 FINDINGS: 17 cc of MultiHance was utilized for the examination. There is a large plantar base ulceration underlying the cuboid and the base of the fifth metatarsal. There is abnormal cortical osteolysis and bone marrow signal intensity involving the base of the third and fourth metatarsal in addition to cuboid, plantar middle and lateral cuneiform consistent wi th changes of osteomyelitis. 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 The amputations of the second through fifth metatarsal he ads are similar appearing. Susceptibility artifact involving instrumentation the calcaneus and great toe metatarsal phalangeal joint slightly limits image detail. IMPRESSION: Large plantar base ulceration underlying the lateral aspect of the midfoot with abnormal osteomyelitis involving the base of the third and fourth metatarsal, the plantar aspect of the middle and lateral cuneiform, plantar aspect of the cuboid .
== END 2019-08-03 13:48 | disposition home or self-care (01) ==
LOC: BICMRI 13:47
PROVIDERS: ATTEND Specialist
DX: L03.116 Cellulitis of left lower limb (principal); L97.529 Non-pressure chronic ulcer of other part of left foot with unspecified severity; M86.8X7 Other osteomyelitis, ankle and foot

== ENCOUNTER 2019-08-04 13:46 | Inpatient (IN) | payer MEDICARE ==
[2019-08-04 15:41] LABS: #Eosinphils 0.1 thou/uL (0.0-0.7); #Lymphocytes 0.7 thou/uL (1.20-3.40); #Monocytes 0.3 thou/uL (0.11-0.59); #Neutrophils 1.2 thou/uL (1.40-6.50); %Basophils 0.6 % (0.0-1.0); %Eosinophils 4.4 % (0.0-10.0); %Lymphocytes 29.9 % (21.0-51.0); %Monocytes 11.6 % (0.0-10.0); %Neutrophils 53.5 % (42.0-75.0); Hemoglobin 11.5 g/dL (14.0-18.0); Mean Corpuscular HGB CONC 31.5 g/dL (32.0-36.0); Mean Corpuscular Volume 79.4 fL (78.0-98.0); Mean Platelet Volume 8.8 fL (7.4-10.4); Platelet Count 103 thou/uL (130-400); RBC Distribution Width 17.3 % (11.5-14.5); White Blood Cell (WBC) Count 2.2 thou/uL (4.8-10.8)
[2019-08-04 15:52] LABS: ALT (SGPT) 17 U/L (8-55); AST (SGOT) 24 U/L (5-34); Albumin 3.9 g/dL (3.4-4.8); Alkaline Phosphatase 99 U/L (40-110); Anion Gap 14 mmol/L (10-20); BUN (Urea Nitrogen) 11 mg/dL (8.4-25.7); Bilirubin, Total 0.5 mg/dL (0.2-1.2); Calc. Creatinine Clearance 0 mL/min (70-130); Calcium 9.5 mg/dL (7.8-10.44); Carbon Dioxide 28 mmol/L (23-31); Chloride 101 mmol/L (98-107); Estimated GFR-MDRD Greater than 90; Glucose 93 mg/dL (80-115); Potassium 4.1 mmol/L (3.5-5.1); Protein, Total 7.9 g/dL (5.8-8.1); Sodium 139 mmol/L (136-145)
[2019-08-04] MEDS ORDERED: Piperacillin/Tazobactam 4.5 GM VIAL ONE (15:54)
[2019-08-04] MEDS ORDERED: Morphine 4 MG/ML VIAL ONE (16:21)
--- NOTE | 2019-08-04 16:23 | RAD ---
Exam: Chest one view HISTORY:Osteomyelitis. Chills. Infection. Comparison: 04/07/2018 FINDINGS: Cardiac silhouette: Normal Aorta: Elongation aorta Pulmonary vessels: Normal Costophrenic angles: Clear LUNGS: No masses or consolidation. Scarring and atelectasis the left lung base with mild elevation of the left hemidiaphragm Pneumothorax: None Osseous abnormalities: None IMPRESSION: No acute cardiopulmonary process. Chronic changes in the left lung base.
[2019-08-04] MEDS: Docusate 100 MG CAP PO SCH (20:29)
[2019-08-04] MEDS: Acetaminophen 325 MG TAB PO PRN (20:29)
[2019-08-04] MEDS: ALPRAZolam 1 MG TAB PO SCH (20:29)
[2019-08-04] MEDS: BIOTENE MOUTH SPRAY 44.3 ML MM SCH (20:30)
[2019-08-05] MEDS: Acetaminophen 325 MG TAB PO PRN ×2 (04:31→08:18)
[2019-08-05] MEDS: Pentazocine HCl/Naloxone HCl 50/0.5 MG TAB PO PRN ×2 (05:12→16:41)
[2019-08-05] MEDS: Piperacillin/Tazobactam 3.375 GM in Sodium Chloride 0.9% 100 ML IVPB SCH ×3 (05:13→16:42)
--- NOTE | 2019-08-05 05:21 | HP ---
CHIEF COMPLAINT ON ADMISSION: Osteomyelitis, left foot. HISTORY OF PRESENT ILLNESS: The patient is a 64-year-old male, who has had previous infection with amputation to his left foot before. Over the last several weeks, the foot became more and more painful and eventually he went to the emergency room for evaluation. There, x-rays were taken and he was placed on antibiotics. He came to see Dr. Myles on the day prior to this admission, where he was unimproved on the antibiotics, was having chills and appeared to be ill. At this point, an MRI was ordered, which the results became available on the day of admission showing osteomyelitis in his foot. He was sent to the hospital for admission. He has had chills. He denies fever. He rates his pain at 8/10 on his foot. It is very difficult to walk. It has been red, swollen, warm to touch and interfere with his weightbearing. PAST MEDICAL HISTORY: As mentioned previously, he has had a previous episode of infection in that foot requiring surgery 1 year ago. His other medical problems include prescription drug abuse for pain and anxiety resulting in accidental overdose, debilitating rheumatoid arthritis, medical noncompliance, anxiety disorder, dyslipidemia. PAST SURGICAL HISTORY: Includes left elbow, right hand, right hip, bilateral knees, left foot and left ankle and left elbow was replaced in March 2018. He has had a right total hip replacement, laparoscopic cholecystectomy. He has had an EGD and colonoscopy in June 2017, and amputation of the left forefoot to toes in 2019. PSYCHIATRIC HISTORY: Significant for depression, anxiety, and prescription substance abuse. ALLERGIES: NONE. MEDICATIONS ON ADMISSION: Include; 1. Fentanyl 75 mcg patch applied q.72 hours. 2. Xanax 2 mg t.i.d. These prescriptions were monitored by a relative and the patient is not allowed to self administer any controlled substances. He is also on; 1. Protonix 40 mg a day. 2. Flexeril 10 mg p.r.n. muscle spasms. 3. Methotrexate 20 mg injection once weekly. 4. Keflex 500 mg q.i.d. most recently from the emergency room along with clindamycin 300 mg q.i.d. REVIEW OF SYSTEMS: CONSTITUTIONAL: He admits to chills and malaise. Denies fever. HEENT: Denies drainage or sores in eyes, ears, nose, or throat. CHEST: Denies shortness of breath or cough. CARDIOVASCULAR: Denies palpitations or chest pain. GI: Denies nausea, vomiting, or diarrhea. : Denies dysuria or blood in urine or stool. MUSCULOSKELETAL: Disabled with deformities in both wrists and the other major weightbearing joints. SKIN: No new rashes or lesions. NEUROLOGIC: Denies headaches or confusion or trouble with mentation. LYMPHATICS: No areas of edema, or nodes, or lymphadenopathy. PHYSICAL EXAMINATION: VITAL SIGNS: On admission, blood pressure 144/90, pulse 79, respirations 18, temperature 98.2. Pain scale again is rated at 8/10 and O2 saturations 98% on room air. GENERAL: This is a well-developed, adequately nourished, male, alert, oriented, cooperative, in no apparent distress. HEENT: Normocephalic with some mild temporal wasting. TMs and nares are clear. Pharynx shows poor dentition. NECK: Supple. No adenopathy. No bruits. CHEST: Clear to auscultation. HEART: Regular rate and rhythm without murmur. ABDOMEN: Soft without hepatosplenomegaly. : Normal male. EXTREMITIES: With diffuse deformities in all major joints with well-healed scars and some focal corrections noted. SKIN: No new rashes or lesions. The left foot has deformity with plantar perfusion. No signs of heat or erythema, but is tender to palpation. NEUROLOGIC: The patient is barely able to ambulate due to pain in the left foot. Cranial nerves are intact. Sensory exam is grossly intact and the gait is antalgic as described. LABORATORY DATA: Lab work thus far shows WBCs 2.2, hemoglobin is 11.5, hematocrit 36.5 with platelets at 103. Sodium 139, potassium 4.1, chloride 101, carbon dioxide 28, BUN 11, creatinine 0.7 with a GFR greater than 90, glucose 93, calcium 9.5. Liver functions unremarkable. MRI of the lower extremity shows large plantar base ulceration underlying the lateral aspect of the midfoot with abnormal osteomyelitis involving the base of the 3rd and 4th metatarsals. The middle and lateral cuneiform may also have osteomyelitis. Chest x-ray shows no acute process. There is chronic changes in the lung bases with scarring and atelectasis of the left lung base and mild elevation of the left hemidiaphragm. ASSESSMENT: 1. Osteomyelitis, left foot. 2. Severe rheumatoid arthritis with deformity. 3. Chronic pain. 4. History of pain medication abuse. 5. Leukopenia. 6. Thrombocytopenia. PLAN: Surgical consultation along with Infectious Disease consultation. Cultures have been taken. Antibiotics begun and serial re-evaluation along with pain management. Job ID: [id number]
[2019-08-05] MEDS: ALPRAZolam 1 MG TAB PO SCH ×3 (08:17→20:51)
[2019-08-05] MEDS: Docusate 100 MG CAP PO SCH ×2 (08:19→20:51)
[2019-08-05] MEDS: BIOTENE MOUTH SPRAY 44.3 ML MM SCH ×2 (08:30→20:51)
[2019-08-05] MEDS ORDERED: Vancomycin HCl 1 GM in Premix Bag 1 BAG IVPB SCH (09:00)
--- NOTE | 2019-08-05 11:08 | SPC ---
Left upper extremity PICC placement sonographic guided HISTORY: Foot infection. FINDINGS: After explaining the procedure and answering all questions, left upper extremity was preppe d and draped in usual sterile fashion. Sterile technique, buffered local anesthesia, sonographic guidance, and a 22-gauge needle were used to carefully access the left brachial vein. Standard techni que was used to place the tip of a 5 Malay single lumen PICC so that the tip lies at the level of the superior vena cava. Catheter was flushed and secured externally. Patient tolerated the procedure well and was returned in unchanged condition. Fluoroscopy time 1.0 minutes. IMPRESSION: Left upper extremity PICC is ready for use.
[2019-08-05 14:33] VITALS: BMI 24.9
--- NOTE | 2019-08-05 20:36 | CON ---
DATE OF CONSULTATION: 08/05/2019 CHIEF COMPLAINT: Left foot infection. HISTORY OF PRESENT ILLNESS: A 64-year-old male who is known to me in the past for multiple rheumatoid arthritic changes. He has had previous hip arthroplasties and rheumatoid foot deformities. He recently noted some increasing swelling and some discomfort in his left foot. He does not report any recent fever. He has had no drainage from his plantar left foot. However, he has had prominence in the lateral midfoot with some callus formation. He is not wearing any type of supportive orthotic or custom shoe. MEDICAL HISTORY: Documented. SURGICAL HISTORY: Listed as multiple joint replacements. ALLERGIES: HE HAS NO KNOWN ALLERGIES. MEDICATIONS: Listed. PHYSICAL EXAMINATION: EXTREMITIES: Left lower extremity has mild swelling. There is a small superficial ulceration lesion over the lateral malleolus of the ankle less than 1 cm. Does not appear to have any significant depth or signs of deep infection. The ankle motion is stable. The foot has a significant rocker bottom deformity with limited subtalar and transverse tarsal motion. He has a large plantar prominence laterally with some superficial callus. No ulceration or skin defect. Minimal erythema. No significant tenderness. His remaining forefoot vascularity in alignment is normal. Previous incisions are well healed. The right foot has similar rheumatoid forefoot deformities with stable ankle, mild varus to the hindfoot. No plantar skin lesions or other deformity. LABORATORY DATA: Laboratory show neutropenia and no other significant elevations of inflammatory markers. Imaging was reviewed in which the ankle mortise is intact. No evidence of lateral fibular involvement for the ulcer. The previous surgical hardware appears stable. The midfoot has significant destructive changes with lytic deformity and destruction. It does not appear to have any acute changes. MRI was reviewed, which show reactive changes around the cuboid and lateral tarsometatarsal area adjacent to the soft tissue thickening and did not see a definite abscess. IMPRESSION: Abnormal left midfoot imaging with no active ulceration or source of infection. We will treat him more with a Charcot type lesion as he does not have significant evidence of infectious etiology to his midfoot deformity. We will continue to follow outpatient. We will recommend diabetic Cam walking boot type protection or possible use of a specialized healing type shoe with custom insert. We would not recommend aggressive surgical intervention at this time and will monitor outpatient and follow up in 10 to 14 days upon discharge. Job ID: [id number]
--- NOTE | 2019-08-05 23:42 | CON ---
DATE OF CONSULTATION: 08/05/2019 REASON FOR REQUEST: Concern with possible left foot osteomyelitis. HISTORY OF PRESENT ILLNESS: A 64-year-old who has history of quite advanced rheumatoid arthritis with multiple areas of ankylosis in hands and feet. 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 He has had a previous left foot arthrodesis by Dr. Valenzuela, I think in 2018 or 2016. He has been radiated for intervention in the left hand to make it more usable. On June 19, he was having left foot pain and had a 3 x 3 nodule in the left foot. He was sent to the emergency room and his white cell count was 1.5, platelets 100,000. An incision was attempted in the foot, but no purulent exudate was noted. The patient had 1 set of blood cultures with likely contaminant and then sample from the foot I and D, which was just a rare mixed with skin ivette probably contaminant as well or a colonizer from the skin. The patient received few days of IV broad-spectrum antimicrobial therapy. 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 After discharge, the patient developed again recrudescence of pain in the left side. Apparently, he went to the emergency room and the foot had been erythematous and warm and was given some oral antimicrobials with some improvement, but then the symptoms returned. He was admitted yesterday. No headaches, visual symptoms, sore throat, odynophagia, or dysphagia. No reported fever. No cough, sputum production, or chest pain. No abdominal pain. Multiple joint abnormalities related to his long-standing rheumatoid arthritis. He is not receiving TNF inhibitors at this moment. PAST MEDICAL HISTORY: His past medical history includes rheumatoid arthritis with severe ankylosis in multiple joints. 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 PAST SURGICAL HISTORY: Includes cholecystectomy, right hand fusion, replacements of hip, knees and left elbow replacement. SOCIAL HISTORY: [place] in the area about [place] here with family, he is not . No children, never smoker. ALLERGIES: CELECOXIB. HE ALSO IS ALLERGIC TO SULFA DRUGS, MEPERIDINE. CURRENT MEDICATIONS: 1. Tylenol. 2. Xanax. 3. Colace. 4. Duragesic. 5. Biotene. 6. Pantoprazole. 7. Zosyn. 8. Vancomycin. PHYSICAL EXAMINATION: VITAL SIGNS: He has been afebrile. BP 117/72, pulse 68, respirations 16-18, O2 saturation 96%. SKIN: Shows the plantar aspect of left foot with no evidence of ulceration. No erythema. There is a protuberance, which probably is related to Charcot deformity with a drop in the mid foot region towards the plantar aspect, but there is no ulceration. Again, no drainage. No erythema. No lymphadenopathy. HEENT: Ocular movements conjugate. Oral cavity with no remarkable findings. NECK: Supple, no jugular vein distention. LUNGS: Symmetric clear breath sounds. HEART: S1 and S2, regular rate. No S3 or S4. ABDOMEN: Soft, not distended or tender. No ascites. No bladder distention. The area is with joint replacement without any evidence of inflammatory change. EXTREMITIES: Pulses are 1+ in dorsalis pedis and posterior tibialis. NEUROLOGIC: His cognitive function appears to be intact and has a nonfocal neuro exam. LABORATORY STUDIES: White cell count 2.2, hemoglobin 11.5, MCV 79, platelets 103 with a normal differential except for some monocytosis. Chemistry was not remarkable. Globulin 4.0. Two Sets of blood cultures no growth thus far. ASSESSMENT: 1. Rheumatoid arthritis with multiple areas of ankylosis in hands and feet, Charcot arthropathy with a drop in mid foot in left side and brittle bones there with some evidence of mobility of the mid foot region, but no inflammatory changes noted. No ulceration. 2. Felty's syndrome. DISCUSSION: The overall clinical and radiological as well as laboratory findings are more indicative of Charcot arthropathy left foot rather than osteomyelitis. In that case, he would require casting of the foot with some other type of splint to allow fusion to occur. I would not recommend antimicrobial therapy at this point in time. Evaluating c reactive protein would not be helpful, because he does have rheumatoid arthritis, which would necessarily increase protein concentration in the blood. Job ID: [id number] [facility]
[2019-08-06 06:19] LABS: #Eosinphils 0.1 thou/uL (0.0-0.7); #Lymphocytes 0.9 thou/uL (1.20-3.40); #Monocytes 0.2 thou/uL (0.11-0.59); #Neutrophils 1.1 thou/uL (1.40-6.50); %Basophils 0.9 % (0.0-1.0); %Eosinophils 5.2 % (0.0-10.0); %Lymphocytes 38.6 % (21.0-51.0); %Monocytes 8.8 % (0.0-10.0); %Neutrophils 46.5 % (42.0-75.0); Hemoglobin 9.5 g/dL (14.0-18.0); Mean Corpuscular HGB CONC 29.5 g/dL (32.0-36.0); Mean Corpuscular Hemoglobin 23.5 pg (27.0-31.0); Mean Corpuscular Volume 79.8 fL (78.0-98.0); Mean Platelet Volume 8.7 fL (7.4-10.4); Platelet Count 90 thou/uL (130-400); RBC Distribution Width 17.5 % (11.5-14.5); Red Blood Cell (RBC) Count 4.02 mill/uL (4.70-6.10); White Blood Cell (WBC) Count 2.4 thou/uL (4.8-10.8)
[2019-08-06 06:38] LABS: Anion Gap 9 mmol/L (10-20); BUN (Urea Nitrogen) 10 mg/dL (8.4-25.7); Calc. Creatinine Clearance 119 mL/min (70-130); Carbon Dioxide 31 mmol/L (23-31); Chloride 105 mmol/L (98-107); Estimated GFR-MDRD Greater than 90; Glucose 90 mg/dL (80-115); Potassium 3.5 mmol/L (3.5-5.1); Sodium 141 mmol/L (136-145)
[2019-08-06] MEDS: ALPRAZolam 1 MG TAB PO SCH (08:30)
[2019-08-06] MEDS: Docusate 100 MG CAP PO SCH (08:30)
[2019-08-06] MEDS: Acetaminophen 325 MG TAB PO PRN (08:31)
[2019-08-06 08:35] VITALS: BP 119/73; TEMP 97.9
[2019-08-06] MEDS: BIOTENE MOUTH SPRAY 44.3 ML MM SCH (09:01)
[2019-08-06] MEDS ORDERED: fentaNYL 75 mcg/hour Patch TD SCH (12:00)
== END 2019-08-06 11:42 | disposition home health service (06) | DRG 554 ==
LOC: ERS 13:46 → T4-B 16:57
PROVIDERS: ADMIT Specialist; ATTEND Specialist
PROC: 02HV33Z Insertion of Infusion Device into Superior Vena Cava, Percutaneous Approach (ICD-10-PCS; principal; 2019-08-05)
PROC: B548ZZA Ultrasonography of Superior Vena Cava, Guidance (ICD-10-PCS; 2019-08-05)
DX: M14.672 Charcot's joint, left ankle and foot (principal); J98.11 Atelectasis; D61.818 Other pancytopenia; Z96.662 Presence of left artificial ankle joint; M05.0 Felty's syndrome; M06.9 Rheumatoid arthritis, unspecified; E78.5 Hyperlipidemia, unspecified; G89.29 Other chronic pain; D69.6 Thrombocytopenia, unspecified; Z96.643 Presence of artificial hip joint, bilateral; Z96.622 Presence of left artificial elbow joint; Z96.653 Presence of artificial knee joint, bilateral; Z90.49 Acquired absence of other specified parts of digestive tract; Z88.2 Allergy status to sulfonamides; Z88.8 Allergy status to other drugs, medicaments and biological substances
CPT/HCPCS: 36415; 36569; 71045; 80048; 80053; 85025; 87040; 93005; 96365; 96367; 96375; C1751; J2270; J2543; J3370; J3490

== ENCOUNTER 2022-03-18 02:15 | Emergency (ER) | payer MEDICARE, OTHER | END 2022-03-18 03:37 | disposition home or self-care (01) | LOC: ERS 02:15 | DX: G89.11 Acute pain due to trauma (principal); M54.50 Low back pain, unspecified; W18.09XA Striking against other object with subsequent fall, initial encounter | CPT/HCPCS: 72100; 93005 ==

== ENCOUNTER 2023-03-17 16:09 | Emergency (ER) | payer OTHER | END 2023-03-17 17:34 | disposition home or self-care (01) | LOC: ERS 16:09 | DX: S42.032A Displaced fracture of lateral end of left clavicle, initial encounter for closed fracture (principal); W18.30XA Fall on same level, unspecified, initial encounter ==

== ENCOUNTER 2023-05-05 11:16 | Outpatient (CLI) | payer OTHER | END 2023-05-05 11:17 | disposition home or self-care (01) | LOC: BICRAD 11:16 | PROVIDERS: ATTEND Internal Medicine Rheumatology | DX: M54.2 Cervicalgia (principal); M05.79 Rheumatoid arthritis with rheumatoid factor of multiple sites without organ or systems involvement | CPT/HCPCS: 72052 ==

== ENCOUNTER 2025-03-14 18:52 | Inpatient (IN) | payer OTHER ==
[~2025-03-14 18:52] MED LIST changes: -ISOVUE-370 76%-LOCM 1 ML ONE; +Iopamidol-370 76% 500 ML MDV (1 ML CHARGE) ONE
[2025-03-14 21:20] LABS: #Basophils 0.04 10x3/uL (0.0-0.2); #Eosinophils Less than 0.03 10x3/uL (0.0-0.7); #Monocytes 0.56 10x3/uL (0.11-0.59); #Neutrophils 8.36 10x3/uL (1.40-6.50); %Basophils 0.4 % (0.0-1.0); %Eosinophils 0.0 % (0.0-10.0); %Lymphocytes 6.7 % (21.0-51.0); %Monocytes 5.8 % (0.0-10.0); %Neutrophils 86.5 % (42.0-75.0); Hematocrit 40.7 % (42.0-52.0); Hemoglobin 13.7 g/dL (14.0-18.0); Mean Corpuscular Hemoglobin 29.8 pg (27.0-31.0); Mean Corpuscular Volume 88.7 fL (78.0-98.0); Platelet Count 99 10x3/uL (130-400); Red Blood Cell (RBC) Count 4.59 mill/uL (4.70-6.10); White Blood Cell (WBC) Count 9.67 10x3/uL (4.8-10.8)
[2025-03-14 21:28] LABS: INR-International Normal Ratio 1.2; Prothrombin Time 15.5 sec (12.0-14.7)
[2025-03-14 21:29] LABS: PTT 31.3 sec (22.9-36.1)
[2025-03-14 21:47] LABS: ALT (SGPT) 58 U/L (Less than 45); AST (SGOT) 140 U/L (11-34); Albumin 4.2 g/dL (3.1-4.5); Alkaline Phosphatase 88 U/L (40-110); Anion Gap 19 mmol/L (10-20); BUN (Urea Nitrogen) 19 mg/dL (8.4-25.7); Bilirubin, Total 2.6 mg/dL (0.3-1.2); CK (CPK) 2042 U/L (30-200); Calc. Creatinine Clearance 0 mL/min (70-130); Calcium 9.6 mg/dL (7.8-10.44); Carbon Dioxide 26 mmol/L (23-31); Chloride 101 mmol/L (98-107); Globulin 3.3 g/dL (2.4-3.5); Glucose 114 mg/dL (80-115); Potassium 3.9 mmol/L (3.5-5.1); Sodium 142 mmol/L (136-145)
[2025-03-15] MEDS ORDERED: Ondansetron PF 4 MG/2 ML Vial IVP PRN (00:50)
[2025-03-15] MEDS ORDERED: Melatonin 3 MG TAB PO PRN (00:50)
[2025-03-15] MEDS ORDERED: Calcium Carbonate 500 MG ChewTAB PO PRN (00:50)
[2025-03-15] MEDS ORDERED: Electrolyte Replacement Protocol 1 EACH FS SCH (01:00)
[2025-03-15 01:28] VITALS: BMI 21.3
[2025-03-15 06:08] LABS: ALT (SGPT) 52 U/L (Less than 45); AST (SGOT) 108 U/L (11-34); Albumin 3.3 g/dL (3.1-4.5); Alkaline Phosphatase 71 U/L (40-110); Anion Gap 13 mmol/L (10-20); BUN (Urea Nitrogen) 15 mg/dL (8.4-25.7); Bilirubin, Total 1.8 mg/dL (0.3-1.2); Calc. Creatinine Clearance 115 mL/min (70-130); Calcium 8.4 mg/dL (7.8-10.44); Carbon Dioxide 26 mmol/L (23-31); Chloride 106 mmol/L (98-107); Globulin 2.5 g/dL (2.4-3.5); Glucose 108 mg/dL (80-115); Potassium 3.9 mmol/L (3.5-5.1); Sodium 141 mmol/L (136-145)
[2025-03-15 06:25] LABS: #Basophils 0.04 10x3/uL (0.0-0.2); #Eosinophils 0.03 10x3/uL (0.0-0.7); #Monocytes 0.71 10x3/uL (0.11-0.59); #Neutrophils 5.43 10x3/uL (1.40-6.50); %Basophils 0.6 % (0.0-1.0); %Eosinophils 0.4 % (0.0-10.0); %Lymphocytes 12.3 % (21.0-51.0); %Monocytes 10.0 % (0.0-10.0); %Neutrophils 76.1 % (42.0-75.0); Hematocrit 35.2 % (42.0-52.0); Hemoglobin 11.5 g/dL (14.0-18.0); Mean Corpuscular Hemoglobin 29.8 pg (27.0-31.0); Mean Corpuscular Volume 91.2 fL (78.0-98.0); Platelet Count 75 10x3/uL (130-400); Red Blood Cell (RBC) Count 3.86 mill/uL (4.70-6.10); White Blood Cell (WBC) Count 7.13 10x3/uL (4.8-10.8)
[2025-03-15] MEDS: Enoxaparin 40 MG (0.4 mL) SYRINGE SC SCH (08:25)
[2025-03-15] MEDS: Folic Acid 1 MG TAB PO SCH (08:26)
[2025-03-15] MEDS: Senokot S 8.6-50 MG TAB PO SCH (08:26)
[2025-03-15] MEDS: Cyclobenzaprine 10 MG TAB PO PRN (17:38)
[2025-03-16 06:58] LABS: Anion Gap 12 mmol/L (10-20); BUN (Urea Nitrogen) 12 mg/dL (8.4-25.7); CK (CPK) 386 U/L (30-200); Calc. Creatinine Clearance 115 mL/min (70-130); Calcium 8.2 mg/dL (7.8-10.44); Carbon Dioxide 27 mmol/L (23-31); Chloride 107 mmol/L (98-107); Glucose 98 mg/dL (80-115); Potassium 3.3 mmol/L (3.5-5.1); Sodium 143 mmol/L (136-145)
[2025-03-17 05:55] LABS: Anion Gap 10 mmol/L (10-20); BUN (Urea Nitrogen) 7 mg/dL (8.4-25.7); Calc. Creatinine Clearance 127 mL/min (70-130); Calcium 8.3 mg/dL (7.8-10.44); Carbon Dioxide 27 mmol/L (23-31); Chloride 106 mmol/L (98-107); Glucose 92 mg/dL (80-115); Potassium 3.7 mmol/L (3.5-5.1); Sodium 139 mmol/L (136-145)
[2025-03-18 06:37] LABS: Anion Gap 8 mmol/L (10-20); BUN (Urea Nitrogen) 4 mg/dL (8.4-25.7); Calc. Creatinine Clearance 137 mL/min (70-130); Calcium 8.7 mg/dL (7.8-10.44); Carbon Dioxide 32 mmol/L (23-31); Chloride 104 mmol/L (98-107); Glucose 92 mg/dL (80-115); Potassium 3.8 mmol/L (3.5-5.1); Sodium 140 mmol/L (136-145)
[2025-03-19 07:20] LABS: Anion Gap 10 mmol/L (10-20); BUN (Urea Nitrogen) 6 mg/dL (8.4-25.7); Calc. Creatinine Clearance 119 mL/min (70-130); Calcium 8.7 mg/dL (7.8-10.44); Carbon Dioxide 29 mmol/L (23-31); Chloride 104 mmol/L (98-107); Glucose 96 mg/dL (80-115); Potassium 3.7 mmol/L (3.5-5.1); Sodium 139 mmol/L (136-145)
[2025-03-19 11:47] LABS: Hematocrit 35.7 % (42.0-52.0); Hemoglobin 11.5 g/dL (14.0-18.0); Platelet Count 85 10x3/uL (130-400)
[2025-03-20 06:29] LABS: Anion Gap 10 mmol/L (10-20); BUN (Urea Nitrogen) 7 mg/dL (8.4-25.7); Calc. Creatinine Clearance 117 mL/min (70-130); Calcium 8.6 mg/dL (7.8-10.44); Carbon Dioxide 31 mmol/L (23-31); Chloride 101 mmol/L (98-107); Glucose 94 mg/dL (80-115); Potassium 3.6 mmol/L (3.5-5.1); Sodium 138 mmol/L (136-145)
[2025-03-21 08:17] VITALS: BP 124/68; TEMP 97.5
== END 2025-03-21 11:21 | disposition home or self-care (01) | DRG 566 ==
LOC: ERS 18:52 → T4-A 23:41 → OBSVTOIN 03-15 14:14
PROVIDERS: ADMIT Internal Medicine; ATTEND Hospitalist
DX: T79.6XXA Traumatic ischemia of muscle, initial encounter (principal); R29.6 Repeated falls; M06.89 Other specified rheumatoid arthritis, multiple sites; Z96.622 Presence of left artificial elbow joint; Z96.653 Presence of artificial knee joint, bilateral; Z96.662 Presence of left artificial ankle joint; Z96.643 Presence of artificial hip joint, bilateral; Z96.631 Presence of right artificial wrist joint; F41.9 Anxiety disorder, unspecified; D69.6 Thrombocytopenia, unspecified; G89.4 Chronic pain syndrome; R74.01 Elevation of levels of liver transaminase levels; K59.09 Other constipation; M05.00 Felty's syndrome, unspecified site; Z90.49 Acquired absence of other specified parts of digestive tract; Z79.899 Other long term (current) drug therapy; Z88.8 Allergy status to other drugs, medicaments and biological substances; Z88.2 Allergy status to sulfonamides; Z91.81 History of falling; Z88.5 Allergy status to narcotic agent; Z98.890 Other specified postprocedural states; R53.1 Weakness; W18.09XA Striking against other object with subsequent fall, initial encounter
CPT/HCPCS: 36415; 70450; 70551; 71045; 71260; 72125; 72170; 74177; 80048; 80053; 82550; 83880; 84484; 85014; 85018; 85025; 85049; 85610; 85730; 93005; 94760; 96372; 96374; G0378; J1650; J7030; Q9967